=== PATIENT | male | born 1965 | race Caucasian/White ===

== ENCOUNTER 2016-12-03 10:14 | Emergency (ER) | payer BC ==
[2016-12-03] MEDS ORDERED: methylPREDNISolone INJ 125 MG/2 ML VIAL (J2930) As Ordered ONE (10:53)
[2016-12-03] MEDS ORDERED: IPRATROPIUM 0.5MG/ALBUTEROL 2.5MG INH SOL UD 3ML (DUONEB)(J7620) As Ordered ONE (10:54)
[2016-12-03 11:18] LABS: BASO # 0.1 K/mm3 (0.0-0.2); BASO % 0.9 % (0.0-1.0); EOS # 0.2 K/mm3 (0.0-0.50); EOS % 1.7 % (0.0-3.0); LARGE UNSTAINED CELL # 0.1 K/mm3 (0.0-0.4); LARGE UNSTAINED CELL % 1.4 % (0.0-4.0); LYMPH # 2.8 K/mm3 (1.5-4.5); MEAN CORPUSCULAR HEMOGLOBIN 30.3 pg (27.0-33.0); MEAN CORPUSCULAR HGB CONC 33.1 g/dl (32.0-36.5); MEAN CORPUSCULAR VOLUME 91.6 fl (80.0-96.0); MONO # 0.4 K/mm3 (0.0-0.8); NEUTROPHILS % 63.1 % (36.0-66.0); PLATELET COUNT, AUTOMATED 317 k/mm3 (150-450); RED CELL DISTRIBUTION WIDTH 12.4 % (11.5-14.5); WHITE BLOOD COUNT 9.5 K/mm3 (4.0-10.0)
[2016-12-03 11:39] LABS: ANION GAP 12 MEQ/L (8-16); BLOOD UREA NITROGEN 17 MG/DL (7-18); CALCIUM LEVEL 9.1 MG/DL (8.5-10.1); CARBON DIOXIDE LEVEL 24 MEQ/L (21-32); CHLORIDE LEVEL 101 MEQ/L (98-107); GLOMERULAR FILTRATION RATE > 60.0 (>56); GLUCOSE, FASTING 368 MG/DL (70-105); POTASSIUM SERUM 4.4 MEQ/L (3.5-5.1); SODIUM LEVEL 137 MEQ/L (136-145)
[2016-12-03] MEDS ORDERED: ISOVUE-370 76% 100ML VIAL (Q9967) As Ordered ONE (12:01)
--- NOTE | 2016-12-03 15:49 | EDDOCDS ---
Nurse's Notes [facility] Name: Bal Stanley Age: 51 yrs Sex: Male : 1965 Arrival Date: 12/03/2016 Time: 10:14 Bed 7 Private MD: Ernesto hCeng Diagnosis: Dyspnea-resolving pneumonia Presentation: 12/03 10:24 Presenting complaint: Patient states: Patient being followed by Dr Cheng for possible js13 pneumonia. Patient brought over from outpatient lab for increasing SOB. Patient had chest x ray and labs drawn this morning. Adult Sepsis Screening: The patient does not have new or worsening altered mentation. Patient's respiratory rate is less than 22. Systolic blood pressure is greater than 100. Patient has a qSOFA score of 0- Negative Sepsis Screen. Suicide/Homicide risk assessment- the patient denies having any suicidal and/or homicidal ideations and does not present with any other emotional, behavioral or mental health complaints. Status: Patient is not a office services assistant or dependent. Transition of care: patient was not received from another setting of care. 10:24 Acuity: ARUN Level 3 js13 10:24 Method Of Arrival: Wheelchair js13 Triage Assessment: 10:30 General: Appears in no apparent distress, Behavior is appropriate for age, cooperative. js13 Pain: Denies pain. Pt Declines HIV testing. The patient is triaged at the bedside. See Assessment in Nurses Notes section of ED record. Neurological: Level of Consciousness is awake, alert. Cardiovascular: Rhythm is sinus rhythm Chest pain is denied. Respiratory: Onset: The symptoms/episode began/occurred PAST WEEK, Airway is patent Respiratory effort is even, Respiratory pattern is regular, Breath sounds are diminished. Derm: Skin is pink, warm & dry. Historical: - Allergies: No known drug Allergies; - Home Meds: 1. metformin 1,000 mg Oral tr24 1 tab twice a day 2. metoprolol tartrate 25 mg Oral tab 1 tab 2 times per day 3. omeprazole 40 mg Oral cpDR 1 cap once daily 4. Cinnamon 500 mg oral cap daily 5. azithromycin 250 mg Oral tab 1 tab once daily LAST DAY IS TOMORROW - PMHx: Hypertension; Diabetes - NIDDM: controlled; GERD; - PSHx: Tonsillectomy; - Social history: Smoking status: Patient states former smoker of tobacco. No barriers to communication noted, The patient speaks fluent Swedish. - Family history: Not pertinent. - : The pt / caregiver states he / she is not on anticoagulants. Home medication list is obtained from the patient. - Exposure Risk Screening:: None identified. Screenin:31 Screening information is obtained from the patient. Fall risk: No risks identified. js13 Assistance ADL's: requires no assistance with activities of daily living. Abuse/DV Screen: The patient / caregiver reports he/she is: not in a situation that causes fear, pain or injury. Nutritional screening: No deficits noted. Advance Directives: There is no active DNR order. home support is adequate. Assessment: 10:31 General: Appears in no apparent distress, Behavior is appropriate for age, cooperative. js13 Pain: Denies pain. Neurological: Level of Consciousness is awake, alert. Cardiovascular: Rhythm is sinus rhythm Chest pain is denied. Respiratory: Airway is patent Respiratory effort is even, labored, Respiratory pattern is regular, symmetrical, Breath sounds are diminished. Derm: Skin is pink, warm & dry. 11:22 General: Appears in no apparent distress, Behavior is appropriate for age, cooperative. js13 Pain: Denies pain. Neurological: Level of Consciousness is awake, alert. Cardiovascular: Rhythm is sinus rhythm Chest pain is denied. Respiratory: Airway is patent Respiratory effort is even, unlabored, Respiratory pattern is regular. Derm: Skin is pink, warm & dry. 12:10 Adult Sepsis Screening: The patient does not have new or worsening altered mentation. js13 Patient's respiratory rate is less than 22. Systolic blood pressure is greater than 100. Patient has a qSOFA score of 0- Negative Sepsis Screen. General: Appears in no apparent distress, comfortable, Behavior is appropriate for age, cooperative. Pain: Denies pain. Neurological: Level of Consciousness is awake, alert. Cardiovascular: Rhythm is sinus rhythm Chest pain is denied. Respiratory: Airway is patent Respiratory effort is even, unlabored, Respiratory pattern is regular, symmetrical, Breath sounds are diminished. Derm: Skin is pink, warm & dry. 13:37 General: Appears in no apparent distress, comfortable, Behavior is appropriate for age, js13 cooperative. Pain: Denies pain. Neurological: Level of Consciousness is awake, alert. Cardiovascular: Rhythm is sinus rhythm Chest pain is denied. Respiratory: Airway is patent Respiratory effort is even, unlabored, Respiratory pattern is regular, symmetrical, Breath sounds are diminished. Derm: Skin is pink, warm & dry. 14:14 General: Appears in no apparent distress, Behavior is appropriate for age, cooperative. js13 General: Patient ambulated in hallway with no complications. Patients O2 sat range was 95 to 97% on RA.. Pain: Denies pain. Neurological: Level of Consciousness is awake, alert. Cardiovascular: Rhythm is sinus tachycardia Chest pain is denied. Respiratory: Airway is patent Respiratory effort is even, unlabored, Respiratory pattern is regular, symmetrical. Derm: Skin is pink, warm & dry. 14:57 General: Patient states he has a $6000 deductible on his insurance and is unable to js13 afford his medications and if he needs insulin to control his sugars he will not be taking it if it is too expensive. . 15:41 Adult Sepsis Screening: The patient does not have new or worsening altered mentation. js13 Patient's respiratory rate is less than 22. Systolic blood pressure is greater than 100. Patient has a qSOFA score of 0- Negative Sepsis Screen. General: Appears in no apparent distress, comfortable, Behavior is appropriate for age, cooperative. Pain: Denies pain. Neurological: Level of Consciousness is awake, alert. Cardiovascular: Rhythm is sinus tachycardia Chest pain is denied. Respiratory: Airway is patent Respiratory effort is even, unlabored, Respiratory pattern is regular, symmetrical, Breath sounds are diminished. Derm: Skin is pink, warm & dry. Vital Signs: 10:21 BP 136 / 98 (auto/); Pulse 96; Resp 18; Temp 96.9(O); Pulse Ox 96% on R/A; Weight js13 118.84 kg; Height 5 ft. 11 in. (180.34 cm); Pain 0/10; 10:36 BP 141 / 92 (auto/); js13 10:36 Pulse 92 MON; Resp 18; Pulse Ox 96% on R/A; js13 10:51 BP 131 / 98 (auto/); js13 10:51 Pulse 92 MON; Resp 18; Pulse Ox 94% on R/A; js13 11:06 BP 132 / 90 (auto/); js13 11:06 Pulse 94 MON; Resp 18; Pulse Ox 96% on R/A; js13 11:21 BP 146 / 99 (auto/); js13 11:21 Pulse 108 MON; Resp 18; Pulse Ox 96% on R/A; js13 11:36 BP 123 / 77 (auto/); js13 11:36 Pulse 110 MON; Resp 18; Pulse Ox 93% on R/A; js13 11:51 BP 133 / 84 (auto/); js13 11:51 Pulse 108 MON; Resp 18; Pulse Ox 95% on R/A; js13 12:06 BP 147 / 91 (auto/); js13 12:06 Pulse 110 MON; Resp 18; Pulse Ox 95% on R/A; js13 12:32 BP 197 / 95 (auto/); js13 12:33 Pulse 100 MON; Resp 18; Pulse Ox 93% on R/A; js13 12:47 BP 132 / 84 (auto/); js13 12:47 Pulse 96 MON; Resp 20; Pulse Ox 95% on R/A; js13 13:02 BP 153 / 90 (auto/); js13 13:02 Pulse 114 MON; Resp 20; Pulse Ox 96% on R/A; js13 13:17 BP 143 / 82 (auto/); js13 13:17 Pulse 98 MON; Resp 18; Pulse Ox 93% on R/A; js13 13:32 BP 134 / 80 (auto/); js13 13:32 Pulse 96 MON; Resp 20; Pulse Ox 94% on R/A; js13 13:47 BP 131 / 80 (auto/); js13 13:47 Pulse 102 MON; Resp 18; Pulse Ox 95% on R/A; js13 14:02 BP 143 / 79 (auto/); js13 14:02 Pulse 98 MON; Resp 18; Pulse Ox 93% on R/A; js13 14:17 BP 146 / 94 (auto/); js13 14:17 Pulse 104 MON; Resp 18; Pulse Ox 94% on R/A; js13 14:32 BP 142 / 90 (auto/); js13 14:32 Pulse 102 MON; Resp 18; Pulse Ox 94% on R/A; js13 15:02 BP 154 / 87 (auto/); js13 15:02 Pulse 98 MON; Resp 18; Pulse Ox 95% on R/A; js13 15:17 BP 147 / 86 (auto/); js13 15:17 Pulse 104 MON; Resp 18; Pulse Ox 96% on R/A; js13 15:32 BP 141 / 81 (auto/); js13 15:32 Pulse 110 MON; Resp 18; Temp 97.1(O); Pulse Ox 94% on R/A; Pain 0/10; js13 10:21 Body Mass Index 36.54 (118.84 kg, 180.34 cm) js13 10:36 patient took off O2 js13 ED Course: 10:15 Patient visited by Siobhan Snider, Project Coach. lbd 10:15 Patient moved to Waiting lbd 10:16 Ernesto Cheng is Private Physician. lbd 10:17 Mesha Steele,RN is Primary Nurse. kpj 10:17 Patient moved to 7 [facility] 10:26 Triage Initiated js13 10:31 Patient has correct armband on for positive identification. Placed in gown. Bed in low ct3 position. Call light in reach. Side rails up X2. assistant loan processor on. Pulse ox on. NIBP on. 10:31 The patient / caregiver is instructed regarding the plan of care and ED course. js13 10:31 EKG done. (by ED staff). Reviewed by Shayy Joseph MD. ct3 10:31 No procedures done that require assistance. js13 10:32 Patient visited by Josee Powell PCA. ct3 10:32 Patient visited by Mesha Steele,ROSA M. js13 10:45 Shayy Joseph MD is Attending Physician. sd1 10:45 Patient visited by Shayy Joseph MD. sd1 10:52 -Blood Culture Sent. js13 10:52 B-Type Natiuretic Peptide Sent. 13 10:52 Basic Metabolic Profile Sent. 13 10:52 CBC with Diff Sent. 13 10:52 Cardiac Injury Profile Sent. js13 10:52 Troponin Sent. js13 10:52 Inserted saline lock: 18 gauge in left antecubital area and blood collected. The js13 patient tolerated the procedure well. Labs drawn. (by ED staff). Sent per order to lab. Labs/Blood culture drawn. 10:57 BLOOD CULTURES Sent. js13 11:24 Patient visited by Mesha Steele RN. js13 12:06 [facility] Payment Agreement was scanned into [employer] and attached to record. mm15 12:11 Patient visited by Mesha Steele RN. js13 12:46 Patient visited by Josee Powell PCA. ct3 13:39 Patient visited by Mesha Steele RN. js13 14:16 Patient visited by Mesha Steele RN. js13 15:20 Patient visited by Josee Powell PCA. ct3 15:27 Ernesto Cheng is Referral Physician. sd1 15:41 Discontinued IV lock intact, bleeding controlled, pressure dressing applied, No js13 redness/swelling at site. Administered Medications: 10:57 Drug: Solu-MEDROL 125 mg [Solu-Medrol 500 mg intravenous solution (125 mg)] Route: IVP; js13 Site: left antecubital; 10:59 Drug: Albuterol-Ipratropium 1 neb [ipratropium-albuterol 0.5 mg-3 mg(2.5 mg base)/3 mL kt1 nebulization soln (1 neb)] Route: Nebulizer; 11:15 Drug: Albuterol-Ipratropium 1 neb [ipratropium-albuterol 0.5 mg-3 mg(2.5 mg base)/3 mL kt1 nebulization soln (1 neb)] Route: Nebulizer; 11:28 Drug: Albuterol-Ipratropium 1 neb [ipratropium-albuterol 0.5 mg-3 mg(2.5 mg base)/3 mL kt1 nebulization soln (1 neb)] Route: Nebulizer; 12:12 Drug: NS 0.9% 1000 ml [sodium chloride 0.9 % intravenous solution] Route: IV; Rate: js13 bolus; Site: left antecubital; 15:43 Follow up: IV Status: Completed infusion; IV Intake: 1000ml js13 Point of Care Testing: Blood Glucose: 14:57 Blood Glucose: 339 mg/dL; js13 Ranges: Intake: 15:43 IV: 1000.00ml; Total: 1000.00ml. js13 RT: 10:59 Initial Med Neb Given as ordered Patient was instructed and evaluated on procedure. kt1 Respiratory: Breath sounds are clear Breath sounds are diminished bilaterally. 11:15 Subsequent Med Neb Given as ordered. kt1 11:29 Subsequent Med Neb Given as ordered. kt1 Order Results: Lab Order: B-Type Natiuretic Peptide; SPEC'M 12/03/16 10:49 Test: BRAIN NATRIURETIC PEPTIDE; Value: 7.4; Range: <100; Units: PG/ML; Status: F Lab Order: Basic Metabolic Profile; SPEC'M 12/03/16 10:49 Test: GLUCOSE, FASTING; Value: 368; Range: 70-105; Abnormal: Above high normal; Units: MG/DL; Status: F Test: BLOOD UREA NITROGEN; Value: 17; Range: 7-18; Units: MG/DL; Status: F Test: CREATININE FOR GFR; Value: 0.80; Range: 0.70-1.30; Units: MG/DL; Status: F Test: GLOMERULAR FILTRATION RATE; Value: > 60.0; Range: >56; Status: F Test: SODIUM LEVEL; Value: 137; Range: 136-145; Units: MEQ/L; Status: F Test: POTASSIUM SERUM; Value: 4.4; Range: 3.5-5.1; Units: MEQ/L; Status: F Test: CHLORIDE LEVEL; Value: 101; Range: 98-107; Units: MEQ/L; Status: F Test: CARBON DIOXIDE LEVEL; Value: 24; Range: 21-32; Units: MEQ/L; Status: F Test: ANION GAP; Value: 12; Range: 8-16; Units: MEQ/L; Status: F Test: CALCIUM LEVEL; Value: 9.1; Range: 8.5-10.1; Units: MG/DL; Status: F Test Note: ; Units are mL/min/1.73 m2 Chronic Kidney Disease Staging per NKF: Stage I & II GFR >=60 Normal to Mildly Decreased Stage III GFR 30-59 Moderately Decreased Stage IV GFR 15-29 Severely Decreased Stage V GFR <15 Very Little GFR Left ESRD GFR <15 on DIAMOND SETTER Lab Order: CBC with Diff; SPEC'M 12/03/16 10:49 Test: WHITE BLOOD COUNT; Value: 9.5; Range: 4.0-10.0; Units: K/mm3; Status: F Test: RED BLOOD COUNT; Value: 5.18; Range: 4.30-6.10; Units: M/mm3; Status: F Test: HEMOGLOBIN; Value: 15.7; Range: 14.0-18.0; Units: g/dl; Status: F Test: HEMATOCRIT; Value: 47.5; Range: 42.0-52.0; Units: %; Status: F Test: MEAN CORPUSCULAR VOLUME; Value: 91.6; Range: 80.0-96.0; Units: fl; Status: F Test: MEAN CORPUSCULAR HEMOGLOBIN; Value: 30.3; Range: 27.0-33.0; Units: pg; Status: F Test: MEAN CORPUSCULAR HGB CONC; Value: 33.1; Range: 32.0-36.5; Units: g/dl; Status: F Test: RED CELL DISTRIBUTION WIDTH; Value: 12.4; Range: 11.5-14.5; Units: %; Status: F Test: PLATELET COUNT, AUTOMATED; Value: 317; Range: 150-450; Units: k/mm3; Status: F Test: NEUTROPHILS %; Value: 63.1; Range: 36.0-66.0; Units: %; Status: F Test: LYMPH %; Value: 29.0; Range: 24.0-44.0; Units: %; Status: F Test: MONO %; Value: 4.0; Range: 0.0-5.0; Units: %; Status: F Test: EOS %; Value: 1.7; Range: 0.0-3.0; Units: %; Status: F Test: BASO %; Value: 0.9; Range: 0.0-1.0; Units: %; Status: F Test: LARGE UNSTAINED CELL %; Value: 1.4; Range: 0.0-4.0; Units: %; Status: F Test: NEUTROPHILS #; Value: 6.0; Range: 1.8-7.7; Units: K/mm3; Status: F Test: LYMPH #; Value: 2.8; Range: 1.5-4.5; Units: K/mm3; Status: F Test: MONO #; Value: 0.4; Range: 0.0-0.8; Units: K/mm3; Status: F Test: EOS #; Value: 0.2; Range: 0.0-0.50; Units: K/mm3; Status: F Test: BASO #; Value: 0.1; Range: 0.0-0.2; Units: K/mm3; Status: F Test: LARGE UNSTAINED CELL #; Value: 0.1; Range: 0.0-0.4; Units: K/mm3; Status: F Lab Order: Cardiac Injury Profile; [facility]' 12/03/16 10:49 Test: CPK CREATINE PHOSPHOKINASE; Value: 103; Range: 39-308; Units: U/L; Status: F Test: CK-MB VALUE MASS; Value: 1.0; Range: 0.0-3.6; Units: NG/ML; Status: F Test: MB/CK RELATIVE INDEX; Value: 0.97; Range: < OR =4; Status: F Test Note: ; DIAGNOSIS CRITERIA MMB ng/ml Relative Index (RI) NON-AMI < or = 5 N/A MOSER ZONE > 5 < or = 4 AMI > 5 > 4 Lab Order: Troponin; [facility]' 12/03/16 10:49 Test: TROPONIN I; Value: < 0.02; Range: < 0.10; Units: NG/ML; Status: F Test Note: ; Troponin I Reference Interval for [employer] LOCI: 99th Percentile= 0.00-0.045 ng/ml Risk Stratification: <= 0.10 ng/ml Decreased Risk for Adverse Clinical Events. 0.10-1.50 ng/ml Increased Risk for Adverse Clinical Events. Evaluation of additional criterion and/or repeat testing in 2-6 hours is suggested to rule out myocardial damage. >= 1.50 ng/ml Indicative of Myocardial Injury. Lab Order: Fingerstick Blood Sugar; [facility]' 12/03/16 14:54 Test: BEDSIDE GLUCOSE; Value: 339; Range: 70-105; Abnormal: Above high normal; Units: MG/DL; Status: F Outcome: 15:27 Discharge ordered by Provider. [facility] 15:41 CT Study completed. [facility] 15:41 Discharge Assessment: Patient awake, alert and oriented x 3. No cognitive and/or [facility] functional deficits noted. Patient verbalized understanding of disposition instructions. patient administered narcotics - no. Property :Personal belongings accompany Pt. 15:41 The following High Risk Discharge criteria are identified: None. Discharged to home via [facility] ambulance, with friend. Condition: stable. Discharge instructions given to patient, Instructed on discharge instructions, follow up and referral plans. medication usage, Demonstrated understanding of instructions, medications, Pt was receptive of discharge instructions/ teaching. Prescriptions given X 3. 15:48 Patient left the ED. [facility] Signatures: Shayy Joseph MD MD sd1 Siobhan Snider, Project Coach Unit lbd Anushka Cotter RN RN [facility] Tari Fisher kt1 Josee Powell, MEDICAL MANAGEMENT SPECIALIST MEDICAL MANAGEMENT SPECIALIST ct3 Mesha Steele,RN RN js13 Jose Enrique Etienne mm15 MTDNicolas
--- NOTE | 2016-12-03 15:49 | EDDOCDS ---
Physician Documentation [facility] Name: Bal Stanley Age: 51 yrs Sex: Male : 1965 Arrival Date: 12/03/2016 Time: 10:14 Bed 7 Private MD: Ernesto Cheng Disposition: 12/03/16 15:27 Discharged to Home/Self Care. Impression: Dyspnea - resolving pneumonia. - Condition is Stable. - Discharge Instructions: Pneumonia, Adult, Shortness of Breath, [id number], Pneumonia, Adult, [id number], How to Use a Nebulizer. - Prescriptions for Prednisone 20 mg Oral Tablet - take 3 tablet by ORAL route once daily for 5 days; 15 tablet. Albuterol Sulfate 2.5 mg /3 mL (0.083 %) Inhalation Solution for Nebulization - inhale 1 unit by NEBULIZATION route 4 times per day As needed; 1 box. Home Nebulizer - Dx: (pneumonia). Duration: (3 months). - Medication Reconciliation, Local Pharmacy Hours form. - Follow up: Ernesto Cheng; When: Tomorrow. - Problem is an ongoing problem. - Symptoms have improved. Historical: - Allergies: No known drug Allergies; - Home Meds: 1. metformin 1,000 mg Oral tr24 1 tab twice a day 2. metoprolol tartrate 25 mg Oral tab 1 tab 2 times per day 3. omeprazole 40 mg Oral cpDR 1 cap once daily 4. Cinnamon 500 mg oral cap daily 5. azithromycin 250 mg Oral tab 1 tab once daily LAST DAY IS TOMORROW - PMHx: Hypertension; Diabetes - NIDDM: controlled; GERD; - PSHx: Tonsillectomy; - Social history: Smoking status: Patient states former smoker of tobacco. No barriers to communication noted, The patient speaks fluent Georgian. - Family history: Not pertinent. - : The pt / caregiver states he / she is not on anticoagulants. Home medication list is obtained from the patient. - Exposure Risk Screening:: None identified. Vital Signs: 12/03 10:21 BP 136 / 98 (auto/); Pulse 96; Resp 18; Temp 96.9(O); Pulse Ox 96% on R/A; Weight js13 118.84 kg / 262 lbs; Height 5 ft. 11 in. (180.34 cm); Pain 0/10; 10:36 BP 141 / 92 (auto/); js13 10:36 Pulse 92 MON; Resp 18; Pulse Ox 96% on R/A; js13 10:51 BP 131 / 98 (auto/); js13 10:51 Pulse 92 MON; Resp 18; Pulse Ox 94% on R/A; js13 11:06 BP 132 / 90 (auto/); js13 11:06 Pulse 94 MON; Resp 18; Pulse Ox 96% on R/A; js13 11:21 BP 146 / 99 (auto/); js13 11:21 Pulse 108 MON; Resp 18; Pulse Ox 96% on R/A; js13 11:36 BP 123 / 77 (auto/); js13 11:36 Pulse 110 MON; Resp 18; Pulse Ox 93% on R/A; js13 11:51 BP 133 / 84 (auto/); js13 11:51 Pulse 108 MON; Resp 18; Pulse Ox 95% on R/A; js13 12:06 BP 147 / 91 (auto/); js13 12:06 Pulse 110 MON; Resp 18; Pulse Ox 95% on R/A; js13 12:32 BP 197 / 95 (auto/); js13 12:33 Pulse 100 MON; Resp 18; Pulse Ox 93% on R/A; js13 12:47 BP 132 / 84 (auto/); js13 12:47 Pulse 96 MON; Resp 20; Pulse Ox 95% on R/A; js13 13:02 BP 153 / 90 (auto/); js13 13:02 Pulse 114 MON; Resp 20; Pulse Ox 96% on R/A; js13 13:17 BP 143 / 82 (auto/); js13 13:17 Pulse 98 MON; Resp 18; Pulse Ox 93% on R/A; js13 13:32 BP 134 / 80 (auto/); js13 13:32 Pulse 96 MON; Resp 20; Pulse Ox 94% on R/A; js13 13:47 BP 131 / 80 (auto/); js13 13:47 Pulse 102 MON; Resp 18; Pulse Ox 95% on R/A; js13 14:02 BP 143 / 79 (auto/); js13 14:02 Pulse 98 MON; Resp 18; Pulse Ox 93% on R/A; js13 14:17 BP 146 / 94 (auto/); js13 14:17 Pulse 104 MON; Resp 18; Pulse Ox 94% on R/A; js13 14:32 BP 142 / 90 (auto/); js13 14:32 Pulse 102 MON; Resp 18; Pulse Ox 94% on R/A; js13 15:02 BP 154 / 87 (auto/); js13 15:02 Pulse 98 MON; Resp 18; Pulse Ox 95% on R/A; js13 15:17 BP 147 / 86 (auto/); js13 15:17 Pulse 104 MON; Resp 18; Pulse Ox 96% on R/A; js13 15:32 BP 141 / 81 (auto/); js13 15:32 Pulse 110 MON; Resp 18; Temp 97.1(O); Pulse Ox 94% on R/A; Pain 0/10; js13 10:21 Body Mass Index 36.54 (118.84 kg, 180.34 cm) js13 10:36 patient took off O2 js13 MDM: 10:20 -Blood Culture (Adults Only), peripheral from different site, or from device/port/PICC sd1 etc. if present ordered. 10:20 Compensation Consulting Manager/Pulse Ox/q 15 min VS ordered. sd1 10:20 IV Saline Lock ordered. sd1 10:20 Oxygen at 4L/Min NC or Home dosage ordered. sd1 10:20 Rhythm Strip to chart ordered. sd1 10:22 B-Type Natiuretic Peptide Ordered. EDMS 10:22 Basic Metabolic Profile Ordered. EDMS 10:22 CBC with Diff Ordered. EDMS 10:22 Cardiac Injury Profile Ordered. EDMS 10:22 Troponin Ordered. EDMS 10:22 -Blood Culture Ordered. EDMS 10:22 ECG WITH READING ER PHYS+CARDIAG ordered. EDMS 10:48 -Blood Culture (Adults Only), peripheral from different site, or from device/port/PICC lbd etc. if present complete. 10:51 Albuterol-Ipratropium 1 neb Nebulizer every 20 minutes x3 ordered. sd1 10:51 Solu-MEDROL 125 mg IVP once ordered. sd1 10:56 BLOOD CULTURES Ordered. EDMS 10:57 Solu-MEDROL 125 mg IVP once ordered. js13 11:52 Basic Metabolic Profile Reviewed. sd1 11:52 B-Type Natiuretic Peptide Reviewed. sd1 11:52 CBC with Diff Reviewed. sd1 11:52 Cardiac Injury Profile Reviewed. sd1 11:52 Troponin Reviewed. sd1 11:54 CT Chest Angio R/O PE Ordered. EDMS 12:05 Financial registration complete. mm15 12:06 [facility] Payment Agreement was scanned into [employer] and attached to record. mm15 12:10 NS 0.9% 1000 ml IV at bolus once ordered. sd1 14:01 Misc. Nursing Order ordered. sd1 14:45 Accucheck ordered. sd1 Point of Care Testing: Blood Glucose: 14:57 Blood Glucose: 339 mg/dL; js13 Ranges: Administered Medications: 10:57 Drug: Solu-MEDROL 125 mg [Solu-Medrol 500 mg intravenous solution (125 mg)] Route: IVP; js13 Site: left antecubital; 10:59 Drug: Albuterol-Ipratropium 1 neb [ipratropium-albuterol 0.5 mg-3 mg(2.5 mg base)/3 mL kt1 nebulization soln (1 neb)] Route: Nebulizer; 11:15 Drug: Albuterol-Ipratropium 1 neb [ipratropium-albuterol 0.5 mg-3 mg(2.5 mg base)/3 mL kt1 nebulization soln (1 neb)] Route: Nebulizer; 11:28 Drug: Albuterol-Ipratropium 1 neb [ipratropium-albuterol 0.5 mg-3 mg(2.5 mg base)/3 mL kt1 nebulization soln (1 neb)] Route: Nebulizer; 12:12 Drug: NS 0.9% 1000 ml [sodium chloride 0.9 % intravenous solution] Route: IV; Rate: js13 bolus; Site: left antecubital; 15:43 Follow up: IV Status: Completed infusion; IV Intake: 1000ml js13 Signatures: Dispatcher [employer] EDOH Shayy Joseph MD MD sd1 Siobhan Snider, Entertainment Agent Unit lbd Anushka Cotter RN RN kpj Sullivan, Jennifer, RN RN js13 Jose Enrique Etienne mm15 Tari Fisher kt1 The chart was reviewed and I authenticate all verbal orders and agree with the evaluation and treatment provided.Corrections: (The following items were deleted from the chart) 10:52 10:51 BLOOD CULTURES ordered. EDMS EDMS 11:12 10:22 Chest, 1 view+XR ordered. EDMS EDMS Attachments: 12:06 [facility] Payment Agreement mm15 MTDD
--- NOTE | 2016-12-03 17:02 | REP ---
CTA chest,12/03/2016: Indication: Cough. Comparison: PA and lateral chest 08/03/2017 and 10/18/2016. Technique: Following dynamic IV contrast administration of 75 ml Isovue 370 mg/ml IV, 3 mm contiguous spiral axial sections were performed through the chest. Findings: Mild aneurysmal dilatation in ascending thoracic aorta, which measures 4.2 cm in AP by 4.2 cm transverse dimension in the ascending portion. There is no aortic dissection or mediastinal hematoma. There is homogeneous opacification of the bilateral main, lobar and proximal segmental pulmonary arteries. Evaluation of distal pulmonary arteries is somewhat limited contributed to by large body habitus. There are multiple small nonspecific mediastinal nodes, none of which are pathologically enlarged. Interstitial scarring and/or atelectatic changes noted in the lung bases bilaterally. There are no alveolar infiltrates, pulmonary nodules, or pleural effusions. Visualized portions of liver demonstrates mild diffuse fatty infiltration. There is mild hepatomegaly with liver 20.4 cm craniocaudal dimension. Visualized portions of spleen, pancreas, gallbladder, adrenal glands and stomach are within normal limits. There are multiple small fern hepatis and retroperitoneal nodes, none of which are pathologically enlarged. Impression: 1. No central pulmonary artery emboli are identified through the proximal segmental pulmonary artery levels. The more peripheral pulmonary arteries are limited in evaluation contributed to by large body habitus.2. Mild aneurysmal dilatation of ascending thoracic aorta measuring 4.2 x 4.2 cm. No aortic dissection.3. Bilateral interstitial changes most compatible with interstitial fibrotic scarring especially in the lung bases. Differential diagnosis can include atelectatic changes.4. Multiple small fern hepatis/retroperitoneal nodes, none of which are pathologically enlarged.5. Mild hepatomegaly, fatty infiltration of liver. Signed by Rossy Sparks MD 12/03/2016 08:12 P
--- NOTE | 2016-12-04 19:37 | ECGEPIP ---
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
--- NOTE | 2016-12-05 16:50 | EDDOCDS ---
Physician Documentation [facility] Name: Bal Stanley Age: 51 yrs Sex: Male : 1965 Arrival Date: 12/03/2016 Time: 10:14 Bed 7 Private MD: Ernesto Berkowitz Disposition: 12/03/16 15:27 Discharged to Home/Self Care. Impression: Dyspnea - resolving pneumonia. - Condition is Stable. - Discharge Instructions: Pneumonia, Adult, Shortness of Breath, [id number], Pneumonia, Adult, [id number], How to Use a Nebulizer. - Prescriptions for Prednisone 20 mg Oral Tablet - take 3 tablet by ORAL route once daily for 5 days; 15 tablet. Albuterol Sulfate 2.5 mg /3 mL (0.083 %) Inhalation Solution for Nebulization - inhale 1 unit by NEBULIZATION route 4 times per day As needed; 1 box. Home Nebulizer - Dx: (pneumonia). Duration: (3 months). - Medication Reconciliation, Local Pharmacy Hours form. - Follow up: Ernesto Berkowitz; When: Tomorrow. - Problem is an ongoing problem. - Symptoms have improved. Historical: - Allergies: No known drug Allergies; - Home Meds: 1. metformin 1,000 mg Oral tr24 1 tab twice a day 2. metoprolol tartrate 25 mg Oral tab 1 tab 2 times per day 3. omeprazole 40 mg Oral cpDR 1 cap once daily 4. Cinnamon 500 mg oral cap daily 5. azithromycin 250 mg Oral tab 1 tab once daily LAST DAY IS TOMORROW - PMHx: Hypertension; Diabetes - NIDDM: controlled; GERD; - PSHx: Tonsillectomy; - Social history: Smoking status: Patient states former smoker of tobacco. No barriers to communication noted, The patient speaks fluent Sinhala. - Family history: Not pertinent. - : The pt / caregiver states he / she is not on anticoagulants. Home medication list is obtained from the patient. - Exposure Risk Screening:: None identified. Vital Signs: 12/03 10:21 BP 136 / 98 (auto/); Pulse 96; Resp 18; Temp 96.9(O); Pulse Ox 96% on R/A; Weight js13 118.84 kg / 262 lbs; Height 5 ft. 11 in. (180.34 cm); Pain 0/10; 10:36 BP 141 / 92 (auto/); js13 10:36 Pulse 92 MON; Resp 18; Pulse Ox 96% on R/A; js13 10:51 BP 131 / 98 (auto/); js13 10:51 Pulse 92 MON; Resp 18; Pulse Ox 94% on R/A; js13 11:06 BP 132 / 90 (auto/); js13 11:06 Pulse 94 MON; Resp 18; Pulse Ox 96% on R/A; js13 11:21 BP 146 / 99 (auto/); js13 11:21 Pulse 108 MON; Resp 18; Pulse Ox 96% on R/A; js13 11:36 BP 123 / 77 (auto/); js13 11:36 Pulse 110 MON; Resp 18; Pulse Ox 93% on R/A; js13 11:51 BP 133 / 84 (auto/); js13 11:51 Pulse 108 MON; Resp 18; Pulse Ox 95% on R/A; js13 12:06 BP 147 / 91 (auto/); js13 12:06 Pulse 110 MON; Resp 18; Pulse Ox 95% on R/A; js13 12:32 BP 197 / 95 (auto/); js13 12:33 Pulse 100 MON; Resp 18; Pulse Ox 93% on R/A; js13 12:47 BP 132 / 84 (auto/); js13 12:47 Pulse 96 MON; Resp 20; Pulse Ox 95% on R/A; js13 13:02 BP 153 / 90 (auto/); js13 13:02 Pulse 114 MON; Resp 20; Pulse Ox 96% on R/A; js13 13:17 BP 143 / 82 (auto/); js13 13:17 Pulse 98 MON; Resp 18; Pulse Ox 93% on R/A; js13 13:32 BP 134 / 80 (auto/); js13 13:32 Pulse 96 MON; Resp 20; Pulse Ox 94% on R/A; js13 13:47 BP 131 / 80 (auto/); js13 13:47 Pulse 102 MON; Resp 18; Pulse Ox 95% on R/A; js13 14:02 BP 143 / 79 (auto/); js13 14:02 Pulse 98 MON; Resp 18; Pulse Ox 93% on R/A; js13 14:17 BP 146 / 94 (auto/); js13 14:17 Pulse 104 MON; Resp 18; Pulse Ox 94% on R/A; js13 14:32 BP 142 / 90 (auto/); js13 14:32 Pulse 102 MON; Resp 18; Pulse Ox 94% on R/A; js13 15:02 BP 154 / 87 (auto/); js13 15:02 Pulse 98 MON; Resp 18; Pulse Ox 95% on R/A; js13 15:17 BP 147 / 86 (auto/); js13 15:17 Pulse 104 MON; Resp 18; Pulse Ox 96% on R/A; js13 15:32 BP 141 / 81 (auto/); js13 15:32 Pulse 110 MON; Resp 18; Temp 97.1(O); Pulse Ox 94% on R/A; Pain 0/10; js13 10:21 Body Mass Index 36.54 (118.84 kg, 180.34 cm) js13 10:36 patient took off O2 js13 MDM: 10:20 -Blood Culture (Adults Only), peripheral from different site, or from device/port/PICC sd1 etc. if present ordered. 10:20 Bulk System Operator/Pulse Ox/q 15 min VS ordered. sd1 10:20 IV Saline Lock ordered. sd1 10:20 Oxygen at 4L/Min NC or Home dosage ordered. sd1 10:20 Rhythm Strip to chart ordered. sd1 10:22 B-Type Natiuretic Peptide Ordered. EDMS 10:22 Basic Metabolic Profile Ordered. EDMS 10:22 CBC with Diff Ordered. EDMS 10:22 Cardiac Injury Profile Ordered. EDMS 10:22 Troponin Ordered. EDMS 10:22 -Blood Culture Ordered. EDMS 10:22 ECG WITH READING ER PHYS+CARDIAG ordered. EDMS 10:48 -Blood Culture (Adults Only), peripheral from different site, or from device/port/PICC lbd etc. if present complete. 10:51 Albuterol-Ipratropium 1 neb Nebulizer every 20 minutes x3 ordered. sd1 10:51 Solu-MEDROL 125 mg IVP once ordered. sd1 10:56 BLOOD CULTURES Ordered. EDMS 10:57 Solu-MEDROL 125 mg IVP once ordered. js13 11:52 Basic Metabolic Profile Reviewed. sd1 11:52 B-Type Natiuretic Peptide Reviewed. sd1 11:52 CBC with Diff Reviewed. sd1 11:52 Cardiac Injury Profile Reviewed. sd1 11:52 Troponin Reviewed. sd1 11:54 CT Chest Angio R/O PE Ordered. EDMS 12:05 Financial registration complete. mm15 12:06 [facility] Payment Agreement was scanned into [employer] and attached to record. mm15 12:10 NS 0.9% 1000 ml IV at bolus once ordered. sd1 14:01 Misc. Nursing Order ordered. sd1 14:45 Accucheck ordered. sd1 01 00:29 ED course: dr berkowitz faxed formal report of cta for fu mlg. ml 12:07 T-Sheet-- Draft Copy was scanned into [employer] and attached to record. gb 12:07 ECG/EKG was scanned into [employer] and attached to record. gb 12:08 Radiology Report was scanned into [employer] and attached to record. gb Point of Care Testing: Blood Glucose: 12/03 14:57 Blood Glucose: 339 mg/dL; js13 Ranges: Administered Medications: 10:57 Drug: Solu-MEDROL 125 mg [Solu-Medrol 500 mg intravenous solution (125 mg)] Route: IVP; js13 Site: left antecubital; 10:59 Drug: Albuterol-Ipratropium 1 neb [ipratropium-albuterol 0.5 mg-3 mg(2.5 mg base)/3 mL kt1 nebulization soln (1 neb)] Route: Nebulizer; 11:15 Drug: Albuterol-Ipratropium 1 neb [ipratropium-albuterol 0.5 mg-3 mg(2.5 mg base)/3 mL kt1 nebulization soln (1 neb)] Route: Nebulizer; 11:28 Drug: Albuterol-Ipratropium 1 neb [ipratropium-albuterol 0.5 mg-3 mg(2.5 mg base)/3 mL kt1 nebulization soln (1 neb)] Route: Nebulizer; 12:12 Drug: NS 0.9% 1000 ml [sodium chloride 0.9 % intravenous solution] Route: IV; Rate: js13 bolus; Site: left antecubital; 15:43 Follow up: IV Status: Completed infusion; IV Intake: 1000ml js13 Signatures: Dispatcher [employer] EDMS Shayy Joseph MD MD sd1 Amish Lockwood MD MD ml Siobhan Snider, Risk And Insurance Manager Unit lbd Anushka Cotter RN RN kpj Anjali Ruelas, Reg Reg Mesha Guido RN RN js13 Jose Enrique Etienne mm15 Tari Fisher kt1 The chart was reviewed and I authenticate all verbal orders and agree with the evaluation and treatment provided.Corrections: (The following items were deleted from the chart) 10:52 10:51 BLOOD CULTURES ordered. EDMS EDMS 11:12 10:22 Chest, 1 view+XR ordered. EDMS EDMS Attachments: 12:06 [facility] Payment Agreement mm15 12/04 12:07 T-Sheet-- Draft Copy gb 12:07 ECG/EKG gb Chart Complete MTDD
--- NOTE | 2016-12-05 16:50 | EDDOCDS ---
Physician Documentation [facility] Name: Bal Stanley Age: 51 yrs Sex: Male : 1965 Arrival Date: 12/03/2016 Time: 10:14 Bed 7 Private MD: Ernesto Berkowitz Disposition: 12/03/16 15:27 Discharged to Home/Self Care. Impression: Dyspnea - resolving pneumonia. - Condition is Stable. - Discharge Instructions: Pneumonia, Adult, Shortness of Breath, [id number], Pneumonia, Adult, [id number], How to Use a Nebulizer. - Prescriptions for Prednisone 20 mg Oral Tablet - take 3 tablet by ORAL route once daily for 5 days; 15 tablet. Albuterol Sulfate 2.5 mg /3 mL (0.083 %) Inhalation Solution for Nebulization - inhale 1 unit by NEBULIZATION route 4 times per day As needed; 1 box. Home Nebulizer - Dx: (pneumonia). Duration: (3 months). - Medication Reconciliation, Local Pharmacy Hours form. - Follow up: Ernesto Berkowitz; When: Tomorrow. - Problem is an ongoing problem. - Symptoms have improved. Historical: - Allergies: No known drug Allergies; - Home Meds: 1. metformin 1,000 mg Oral tr24 1 tab twice a day 2. metoprolol tartrate 25 mg Oral tab 1 tab 2 times per day 3. omeprazole 40 mg Oral cpDR 1 cap once daily 4. Cinnamon 500 mg oral cap daily 5. azithromycin 250 mg Oral tab 1 tab once daily LAST DAY IS TOMORROW - PMHx: Hypertension; Diabetes - NIDDM: controlled; GERD; - PSHx: Tonsillectomy; - Social history: Smoking status: Patient states former smoker of tobacco. No barriers to communication noted, The patient speaks fluent Icelandic. - Family history: Not pertinent. - : The pt / caregiver states he / she is not on anticoagulants. Home medication list is obtained from the patient. - Exposure Risk Screening:: None identified. Vital Signs: 12/03 10:21 BP 136 / 98 (auto/); Pulse 96; Resp 18; Temp 96.9(O); Pulse Ox 96% on R/A; Weight js13 118.84 kg / 262 lbs; Height 5 ft. 11 in. (180.34 cm); Pain 0/10; 10:36 BP 141 / 92 (auto/); js13 10:36 Pulse 92 MON; Resp 18; Pulse Ox 96% on R/A; js13 10:51 BP 131 / 98 (auto/); js13 10:51 Pulse 92 MON; Resp 18; Pulse Ox 94% on R/A; js13 11:06 BP 132 / 90 (auto/); js13 11:06 Pulse 94 MON; Resp 18; Pulse Ox 96% on R/A; js13 11:21 BP 146 / 99 (auto/); js13 11:21 Pulse 108 MON; Resp 18; Pulse Ox 96% on R/A; js13 11:36 BP 123 / 77 (auto/); js13 11:36 Pulse 110 MON; Resp 18; Pulse Ox 93% on R/A; js13 11:51 BP 133 / 84 (auto/); js13 11:51 Pulse 108 MON; Resp 18; Pulse Ox 95% on R/A; js13 12:06 BP 147 / 91 (auto/); js13 12:06 Pulse 110 MON; Resp 18; Pulse Ox 95% on R/A; js13 12:32 BP 197 / 95 (auto/); js13 12:33 Pulse 100 MON; Resp 18; Pulse Ox 93% on R/A; js13 12:47 BP 132 / 84 (auto/); js13 12:47 Pulse 96 MON; Resp 20; Pulse Ox 95% on R/A; js13 13:02 BP 153 / 90 (auto/); js13 13:02 Pulse 114 MON; Resp 20; Pulse Ox 96% on R/A; js13 13:17 BP 143 / 82 (auto/); js13 13:17 Pulse 98 MON; Resp 18; Pulse Ox 93% on R/A; js13 13:32 BP 134 / 80 (auto/); js13 13:32 Pulse 96 MON; Resp 20; Pulse Ox 94% on R/A; js13 13:47 BP 131 / 80 (auto/); js13 13:47 Pulse 102 MON; Resp 18; Pulse Ox 95% on R/A; js13 14:02 BP 143 / 79 (auto/); js13 14:02 Pulse 98 MON; Resp 18; Pulse Ox 93% on R/A; js13 14:17 BP 146 / 94 (auto/); js13 14:17 Pulse 104 MON; Resp 18; Pulse Ox 94% on R/A; js13 14:32 BP 142 / 90 (auto/); js13 14:32 Pulse 102 MON; Resp 18; Pulse Ox 94% on R/A; js13 15:02 BP 154 / 87 (auto/); js13 15:02 Pulse 98 MON; Resp 18; Pulse Ox 95% on R/A; js13 15:17 BP 147 / 86 (auto/); js13 15:17 Pulse 104 MON; Resp 18; Pulse Ox 96% on R/A; js13 15:32 BP 141 / 81 (auto/); js13 15:32 Pulse 110 MON; Resp 18; Temp 97.1(O); Pulse Ox 94% on R/A; Pain 0/10; js13 10:21 Body Mass Index 36.54 (118.84 kg, 180.34 cm) js13 10:36 patient took off O2 js13 MDM: 10:20 -Blood Culture (Adults Only), peripheral from different site, or from device/port/PICC sd1 etc. if present ordered. 10:20 Fine Arts Teacher/Pulse Ox/q 15 min VS ordered. sd1 10:20 IV Saline Lock ordered. sd1 10:20 Oxygen at 4L/Min NC or Home dosage ordered. sd1 10:20 Rhythm Strip to chart ordered. sd1 10:22 B-Type Natiuretic Peptide Ordered. EDMS 10:22 Basic Metabolic Profile Ordered. EDMS 10:22 CBC with Diff Ordered. EDMS 10:22 Cardiac Injury Profile Ordered. EDMS 10:22 Troponin Ordered. EDMS 10:22 -Blood Culture Ordered. EDMS 10:22 ECG WITH READING ER PHYS+CARDIAG ordered. EDMS 10:48 -Blood Culture (Adults Only), peripheral from different site, or from device/port/PICC lbd etc. if present complete. 10:51 Albuterol-Ipratropium 1 neb Nebulizer every 20 minutes x3 ordered. sd1 10:51 Solu-MEDROL 125 mg IVP once ordered. sd1 10:56 BLOOD CULTURES Ordered. EDMS 10:57 Solu-MEDROL 125 mg IVP once ordered. js13 11:52 Basic Metabolic Profile Reviewed. sd1 11:52 B-Type Natiuretic Peptide Reviewed. sd1 11:52 CBC with Diff Reviewed. sd1 11:52 Cardiac Injury Profile Reviewed. sd1 11:52 Troponin Reviewed. sd1 11:54 CT Chest Angio R/O PE Ordered. EDMS 12:05 Financial registration complete. mm15 12:06 [facility] Payment Agreement was scanned into [employer] and attached to record. mm15 12:10 NS 0.9% 1000 ml IV at bolus once ordered. sd1 14:01 Misc. Nursing Order ordered. sd1 14:45 Accucheck ordered. sd1 01 00:29 ED course: dr berkowitz faxed formal report of cta for fu mlg. ml 12:07 T-Sheet-- Draft Copy was scanned into [employer] and attached to record. gb 12:07 ECG/EKG was scanned into [employer] and attached to record. gb 12:08 Radiology Report was scanned into [employer] and attached to record. gb Point of Care Testing: Blood Glucose: 12/03 14:57 Blood Glucose: 339 mg/dL; js13 Ranges: Administered Medications: 10:57 Drug: Solu-MEDROL 125 mg [Solu-Medrol 500 mg intravenous solution (125 mg)] Route: IVP; js13 Site: left antecubital; 10:59 Drug: Albuterol-Ipratropium 1 neb [ipratropium-albuterol 0.5 mg-3 mg(2.5 mg base)/3 mL kt1 nebulization soln (1 neb)] Route: Nebulizer; 11:15 Drug: Albuterol-Ipratropium 1 neb [ipratropium-albuterol 0.5 mg-3 mg(2.5 mg base)/3 mL kt1 nebulization soln (1 neb)] Route: Nebulizer; 11:28 Drug: Albuterol-Ipratropium 1 neb [ipratropium-albuterol 0.5 mg-3 mg(2.5 mg base)/3 mL kt1 nebulization soln (1 neb)] Route: Nebulizer; 12:12 Drug: NS 0.9% 1000 ml [sodium chloride 0.9 % intravenous solution] Route: IV; Rate: js13 bolus; Site: left antecubital; 15:43 Follow up: IV Status: Completed infusion; IV Intake: 1000ml js13 Signatures: Dispatcher [employer] EDMS Shayy Joseph MD MD sd1 Amish Lockwood MD MD ml Siobhan Snider, Rehabilitation Medicine Physician Unit lbd Anushka Cotter RN RN kpj Anjali Ruelas, Reg Reg Mesha Guido RN RN js13 Jose Enrique Etienne mm15 Tari Fisher kt1 The chart was reviewed and I authenticate all verbal orders and agree with the evaluation and treatment provided.Corrections: (The following items were deleted from the chart) 10:52 10:51 BLOOD CULTURES ordered. EDMS EDMS 11:12 10:22 Chest, 1 view+XR ordered. EDMS EDMS Attachments: 12:06 [facility] Payment Agreement mm15 12/04 12:07 T-Sheet-- Draft Copy gb 12:07 ECG/EKG gb Chart Complete MTDD
--- NOTE | 2016-12-05 16:50 | EDDOCDS ---
Nurse's Notes [facility] Name: Bal Stanley Age: 51 yrs Sex: Male : 1965 Arrival Date: 12/03/2016 Time: 10:14 Bed 7 Private MD: Ernesto Cheng Diagnosis: Dyspnea-resolving pneumonia Presentation: 12/03 10:24 Presenting complaint: Patient states: Patient being followed by Dr Cheng for possible js13 pneumonia. Patient brought over from outpatient lab for increasing SOB. Patient had chest x ray and labs drawn this morning. Adult Sepsis Screening: The patient does not have new or worsening altered mentation. Patient's respiratory rate is less than 22. Systolic blood pressure is greater than 100. Patient has a qSOFA score of 0- Negative Sepsis Screen. Suicide/Homicide risk assessment- the patient denies having any suicidal and/or homicidal ideations and does not present with any other emotional, behavioral or mental health complaints. 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 Transition of care: patient was not received from another setting of care. 10:24 Acuity: ARUN Level 3 js13 10:24 Method Of Arrival: Wheelchair js13 Triage Assessment: 10:30 General: Appears in no apparent distress, Behavior is appropriate for age, cooperative. js13 Pain: Denies pain. Pt Declines HIV testing. The patient is triaged at the bedside. See Assessment in Nurses Notes section of ED record. Neurological: Level of Consciousness is awake, alert. Cardiovascular: Rhythm is sinus rhythm Chest pain is denied. Respiratory: Onset: The symptoms/episode began/occurred PAST WEEK, Airway is patent Respiratory effort is even, Respiratory pattern is regular, Breath sounds are diminished. Derm: Skin is pink, warm & dry. Historical: - Allergies: No known drug Allergies; - Home Meds: 1. metformin 1,000 mg Oral tr24 1 tab twice a day 2. metoprolol tartrate 25 mg Oral tab 1 tab 2 times per day 3. omeprazole 40 mg Oral cpDR 1 cap once daily 4. Cinnamon 500 mg oral cap daily 5. azithromycin 250 mg Oral tab 1 tab once daily LAST DAY IS TOMORROW - PMHx: Hypertension; Diabetes - NIDDM: controlled; GERD; - PSHx: Tonsillectomy; - Social history: Smoking status: Patient states former smoker of tobacco. No barriers to communication noted, The patient speaks fluent Japanese. - Family history: Not pertinent. - : The pt / caregiver states he / she is not on anticoagulants. Home medication list is obtained from the patient. - Exposure Risk Screening:: None identified. Screenin:31 Screening information is obtained from the patient. Fall risk: No risks identified. js13 Assistance ADL's: requires no assistance with activities of daily living. Abuse/DV Screen: The patient / caregiver reports he/she is: not in a situation that causes fear, pain or injury. Nutritional screening: No deficits noted. Advance Directives: There is no active DNR order. home support is adequate. Assessment: 10:31 General: Appears in no apparent distress, Behavior is appropriate for age, cooperative. js13 Pain: Denies pain. Neurological: Level of Consciousness is awake, alert. Cardiovascular: Rhythm is sinus rhythm Chest pain is denied. Respiratory: Airway is patent Respiratory effort is even, labored, Respiratory pattern is regular, symmetrical, Breath sounds are diminished. Derm: Skin is pink, warm & dry. 11:22 General: Appears in no apparent distress, Behavior is appropriate for age, cooperative. js13 Pain: Denies pain. Neurological: Level of Consciousness is awake, alert. Cardiovascular: Rhythm is sinus rhythm Chest pain is denied. Respiratory: Airway is patent Respiratory effort is even, unlabored, Respiratory pattern is regular. Derm: Skin is pink, warm & dry. 12:10 Adult Sepsis Screening: The patient does not have new or worsening altered mentation. js13 Patient's respiratory rate is less than 22. Systolic blood pressure is greater than 100. Patient has a qSOFA score of 0- Negative Sepsis Screen. General: Appears in no apparent distress, comfortable, Behavior is appropriate for age, cooperative. Pain: Denies pain. Neurological: Level of Consciousness is awake, alert. Cardiovascular: Rhythm is sinus rhythm Chest pain is denied. Respiratory: Airway is patent Respiratory effort is even, unlabored, Respiratory pattern is regular, symmetrical, Breath sounds are diminished. Derm: Skin is pink, warm & dry. 13:37 General: Appears in no apparent distress, comfortable, Behavior is appropriate for age, js13 cooperative. Pain: Denies pain. Neurological: Level of Consciousness is awake, alert. Cardiovascular: Rhythm is sinus rhythm Chest pain is denied. Respiratory: Airway is patent Respiratory effort is even, unlabored, Respiratory pattern is regular, symmetrical, Breath sounds are diminished. Derm: Skin is pink, warm & dry. 14:14 General: Appears in no apparent distress, Behavior is appropriate for age, cooperative. js13 General: Patient ambulated in hallway with no complications. Patients O2 sat range was 95 to 97% on RA.. Pain: Denies pain. Neurological: Level of Consciousness is awake, alert. Cardiovascular: Rhythm is sinus tachycardia Chest pain is denied. Respiratory: Airway is patent Respiratory effort is even, unlabored, Respiratory pattern is regular, symmetrical. Derm: Skin is pink, warm & dry. 14:57 General: Patient states he has a $6000 deductible on his insurance and is unable to js13 afford his medications and if he needs insulin to control his sugars he will not be taking it if it is too expensive. . 15:41 Adult Sepsis Screening: The patient does not have new or worsening altered mentation. js13 Patient's respiratory rate is less than 22. Systolic blood pressure is greater than 100. Patient has a qSOFA score of 0- Negative Sepsis Screen. General: Appears in no apparent distress, comfortable, Behavior is appropriate for age, cooperative. Pain: Denies pain. Neurological: Level of Consciousness is awake, alert. Cardiovascular: Rhythm is sinus tachycardia Chest pain is denied. Respiratory: Airway is patent Respiratory effort is even, unlabored, Respiratory pattern is regular, symmetrical, Breath sounds are diminished. Derm: Skin is pink, warm & dry. Vital Signs: 10:21 BP 136 / 98 (auto/); Pulse 96; Resp 18; Temp 96.9(O); Pulse Ox 96% on R/A; Weight js13 118.84 kg; Height 5 ft. 11 in. (180.34 cm); Pain 0/10; 10:36 BP 141 / 92 (auto/); js13 10:36 Pulse 92 MON; Resp 18; Pulse Ox 96% on R/A; js13 10:51 BP 131 / 98 (auto/); js13 10:51 Pulse 92 MON; Resp 18; Pulse Ox 94% on R/A; js13 11:06 BP 132 / 90 (auto/); js13 11:06 Pulse 94 MON; Resp 18; Pulse Ox 96% on R/A; js13 11:21 BP 146 / 99 (auto/); js13 11:21 Pulse 108 MON; Resp 18; Pulse Ox 96% on R/A; js13 11:36 BP 123 / 77 (auto/); js13 11:36 Pulse 110 MON; Resp 18; Pulse Ox 93% on R/A; js13 11:51 BP 133 / 84 (auto/); js13 11:51 Pulse 108 MON; Resp 18; Pulse Ox 95% on R/A; js13 12:06 BP 147 / 91 (auto/); js13 12:06 Pulse 110 MON; Resp 18; Pulse Ox 95% on R/A; js13 12:32 BP 197 / 95 (auto/); js13 12:33 Pulse 100 MON; Resp 18; Pulse Ox 93% on R/A; js13 12:47 BP 132 / 84 (auto/); js13 12:47 Pulse 96 MON; Resp 20; Pulse Ox 95% on R/A; js13 13:02 BP 153 / 90 (auto/); js13 13:02 Pulse 114 MON; Resp 20; Pulse Ox 96% on R/A; js13 13:17 BP 143 / 82 (auto/); js13 13:17 Pulse 98 MON; Resp 18; Pulse Ox 93% on R/A; js13 13:32 BP 134 / 80 (auto/); js13 13:32 Pulse 96 MON; Resp 20; Pulse Ox 94% on R/A; js13 13:47 BP 131 / 80 (auto/); js13 13:47 Pulse 102 MON; Resp 18; Pulse Ox 95% on R/A; js13 14:02 BP 143 / 79 (auto/); js13 14:02 Pulse 98 MON; Resp 18; Pulse Ox 93% on R/A; js13 14:17 BP 146 / 94 (auto/); js13 14:17 Pulse 104 MON; Resp 18; Pulse Ox 94% on R/A; js13 14:32 BP 142 / 90 (auto/); js13 14:32 Pulse 102 MON; Resp 18; Pulse Ox 94% on R/A; js13 15:02 BP 154 / 87 (auto/); js13 15:02 Pulse 98 MON; Resp 18; Pulse Ox 95% on R/A; js13 15:17 BP 147 / 86 (auto/); js13 15:17 Pulse 104 MON; Resp 18; Pulse Ox 96% on R/A; js13 15:32 BP 141 / 81 (auto/); js13 15:32 Pulse 110 MON; Resp 18; Temp 97.1(O); Pulse Ox 94% on R/A; Pain 0/10; js13 10:21 Body Mass Index 36.54 (118.84 kg, 180.34 cm) js13 10:36 patient took off O2 js13 ED Course: 10:15 Patient visited by Siobhan Snider, Iron Piler. lbd 10:15 Patient moved to Waiting lbd 10:16 Ernesto Cheng is Private Physician. lbd 10:17 Mesha Steele,RN is Primary Nurse. kpj 10:17 Patient moved to 7 [facility] 10:26 Triage Initiated js13 10:31 Patient has correct armband on for positive identification. Placed in gown. Bed in low ct3 position. Call light in reach. Side rails up X2. secured entrance monitor on. Pulse ox on. NIBP on. 10:31 The patient / caregiver is instructed regarding the plan of care and ED course. js13 10:31 EKG done. (by ED staff). Reviewed by Shayy Joseph MD. ct3 10:31 No procedures done that require assistance. js13 10:32 Patient visited by Josee Powell PCA. ct3 10:32 Patient visited by Mesha Steele,ROSA M. js13 10:45 Shayy Joseph MD is Attending Physician. sd1 10:45 Patient visited by Shayy Joseph MD. sd1 10:52 -Blood Culture Sent. js13 10:52 B-Type Natiuretic Peptide Sent. 13 10:52 Basic Metabolic Profile Sent. 13 10:52 CBC with Diff Sent. 13 10:52 Cardiac Injury Profile Sent. js13 10:52 Troponin Sent. js13 10:52 Inserted saline lock: 18 gauge in left antecubital area and blood collected. The js13 patient tolerated the procedure well. Labs drawn. (by ED staff). Sent per order to lab. Labs/Blood culture drawn. 10:57 BLOOD CULTURES Sent. js13 11:24 Patient visited by Mesha Steele RN. js13 12:06 [facility] Payment Agreement was scanned into Search to Phone and attached to record. mm15 12:11 Patient visited by Mesha Steele RN. js13 12:46 Patient visited by Josee Powell PCA. ct3 13:39 Patient visited by Mesha Steele RN. js13 14:16 Patient visited by Mesha Steele RN. js13 15:20 Patient visited by Josee Powell PCA. ct3 15:27 Ernesto Cheng is Referral Physician. sd1 15:41 Discontinued IV lock intact, bleeding controlled, pressure dressing applied, No js13 redness/swelling at site. 17:23 CT Chest Angio R/O PE Returned. EDMS 12/04 12:07 T-Sheet-- Draft Copy was scanned into Search to Phone and attached to record. gb 12:07 ECG/EKG was scanned into Search to Phone and attached to record. gb 12:08 Radiology Report was scanned into Search to Phone and attached to record. gb 20:04 EKG-ADULT Returned. EDMS Administered Medications: 12/03 10:57 Drug: Solu-MEDROL 125 mg [Solu-Medrol 500 mg intravenous solution (125 mg)] Route: IVP; js13 Site: left antecubital; 10:59 Drug: Albuterol-Ipratropium 1 neb [ipratropium-albuterol 0.5 mg-3 mg(2.5 mg base)/3 mL kt1 nebulization soln (1 neb)] Route: Nebulizer; 11:15 Drug: Albuterol-Ipratropium 1 neb [ipratropium-albuterol 0.5 mg-3 mg(2.5 mg base)/3 mL kt1 nebulization soln (1 neb)] Route: Nebulizer; 11:28 Drug: Albuterol-Ipratropium 1 neb [ipratropium-albuterol 0.5 mg-3 mg(2.5 mg base)/3 mL kt1 nebulization soln (1 neb)] Route: Nebulizer; 12:12 Drug: NS 0.9% 1000 ml [sodium chloride 0.9 % intravenous solution] Route: IV; Rate: js13 bolus; Site: left antecubital; 15:43 Follow up: IV Status: Completed infusion; IV Intake: 1000ml js13 Point of Care Testing: Blood Glucose: 14:57 Blood Glucose: 339 mg/dL; js13 Ranges: Intake: 15:43 IV: 1000.00ml; Total: 1000.00ml. js13 RT: 10:59 Initial Med Neb Given as ordered Patient was instructed and evaluated on procedure. kt1 Respiratory: Breath sounds are clear Breath sounds are diminished bilaterally. 11:15 Subsequent Med Neb Given as ordered. kt1 11:29 Subsequent Med Neb Given as ordered. kt1 Order Results: Lab Order: -Blood Culture; SPEC'M 12/03/16 10:49 Test: BLOOD CULTURE; Value: No growth after 24 hours . All specimens observed; Status: F Test: BLOOD CULTURE; Value: for 5 days. Results final at that time.; Status: F Test: BLOOD CULTURE; Value: No Growth after 48 hours. All Specimens observed; Status: F Test: BLOOD CULTURE; Value: for 7 days. Results final at that time.; Status: F Lab Order: B-Type Natiuretic Peptide; SPEC'M 12/03/16 10:49 Test: BRAIN NATRIURETIC PEPTIDE; Value: 7.4; Range: <100; Units: PG/ML; Status: F Lab Order: Basic Metabolic Profile; SPEC'M 12/03/16 10:49 Test: GLUCOSE, FASTING; Value: 368; Range: 70-105; Abnormal: Above high normal; Units: MG/DL; Status: F Test: BLOOD UREA NITROGEN; Value: 17; Range: 7-18; Units: MG/DL; Status: F Test: CREATININE FOR GFR; Value: 0.80; Range: 0.70-1.30; Units: MG/DL; Status: F Test: GLOMERULAR FILTRATION RATE; Value: > 60.0; Range: >56; Status: F Test: SODIUM LEVEL; Value: 137; Range: 136-145; Units: MEQ/L; Status: F Test: POTASSIUM SERUM; Value: 4.4; Range: 3.5-5.1; Units: MEQ/L; Status: F Test: CHLORIDE LEVEL; Value: 101; Range: 98-107; Units: MEQ/L; Status: F Test: CARBON DIOXIDE LEVEL; Value: 24; Range: 21-32; Units: MEQ/L; Status: F Test: ANION GAP; Value: 12; Range: 8-16; Units: MEQ/L; Status: F Test: CALCIUM LEVEL; Value: 9.1; Range: 8.5-10.1; Units: MG/DL; Status: F Test Note: ; Units are mL/min/1.73 m2 Chronic Kidney Disease Staging per NKF: Stage I & II GFR >=60 Normal to Mildly Decreased Stage III GFR 30-59 Moderately Decreased Stage IV GFR 15-29 Severely Decreased Stage V GFR <15 Very Little GFR Left ESRD GFR <15 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 Lab Order: CBC with Diff; SPEC'M 12/03/16 10:49 Test: WHITE BLOOD COUNT; Value: 9.5; Range: 4.0-10.0; Units: K/mm3; Status: F Test: RED BLOOD COUNT; Value: 5.18; Range: 4.30-6.10; Units: M/mm3; Status: F Test: HEMOGLOBIN; Value: 15.7; Range: 14.0-18.0; Units: g/dl; Status: F Test: HEMATOCRIT; Value: 47.5; Range: 42.0-52.0; Units: %; Status: F Test: MEAN CORPUSCULAR VOLUME; Value: 91.6; Range: 80.0-96.0; Units: fl; Status: F Test: MEAN CORPUSCULAR HEMOGLOBIN; Value: 30.3; Range: 27.0-33.0; Units: pg; Status: F Test: MEAN CORPUSCULAR HGB CONC; Value: 33.1; Range: 32.0-36.5; Units: g/dl; Status: F Test: RED CELL DISTRIBUTION WIDTH; Value: 12.4; Range: 11.5-14.5; Units: %; Status: F Test: PLATELET COUNT, AUTOMATED; Value: 317; Range: 150-450; Units: k/mm3; Status: F Test: NEUTROPHILS %; Value: 63.1; Range: 36.0-66.0; Units: %; Status: F Test: LYMPH %; Value: 29.0; Range: 24.0-44.0; Units: %; Status: F Test: MONO %; Value: 4.0; Range: 0.0-5.0; Units: %; Status: F Test: EOS %; Value: 1.7; Range: 0.0-3.0; Units: %; Status: F Test: BASO %; Value: 0.9; Range: 0.0-1.0; Units: %; Status: F Test: LARGE UNSTAINED CELL %; Value: 1.4; Range: 0.0-4.0; Units: %; Status: F Test: NEUTROPHILS #; Value: 6.0; Range: 1.8-7.7; Units: K/mm3; Status: F Test: LYMPH #; Value: 2.8; Range: 1.5-4.5; Units: K/mm3; Status: F Test: MONO #; Value: 0.4; Range: 0.0-0.8; Units: K/mm3; Status: F Test: EOS #; Value: 0.2; Range: 0.0-0.50; Units: K/mm3; Status: F Test: BASO #; Value: 0.1; Range: 0.0-0.2; Units: K/mm3; Status: F Test: LARGE UNSTAINED CELL #; Value: 0.1; Range: 0.0-0.4; Units: K/mm3; Status: F Lab Order: Cardiac Injury Profile; SPEC'M 12/03/16 10:49 Test: CPK CREATINE PHOSPHOKINASE; Value: 103; Range: 39-308; Units: U/L; Status: F Test: CK-MB VALUE MASS; Value: 1.0; Range: 0.0-3.6; Units: NG/ML; Status: F Test: MB/CK RELATIVE INDEX; Value: 0.97; Range: < OR =4; Status: F Test Note: ; DIAGNOSIS CRITERIA MMB ng/ml Relative Index (RI) NON-AMI < or = 5 N/A MOSER ZONE > 5 < or = 4 AMI > 5 > 4 Lab Order: Troponin; SPEC'M 12/03/16 10:49 Test: TROPONIN I; Value: < 0.02; Range: < 0.10; Units: NG/ML; Status: F Test Note: ; Troponin I Reference Interval for Trending Taste LOCI: 99th Percentile= 0.00-0.045 ng/ml Risk Stratification: <= 0.10 ng/ml Decreased Risk for Adverse Clinical Events. 0.10-1.50 ng/ml Increased Risk for Adverse Clinical Events. Evaluation of additional criterion and/or repeat testing in 2-6 hours is suggested to rule out myocardial damage. >= 1.50 ng/ml Indicative of Myocardial Injury. Lab Order: BLOOD CULTURES; SPEC'M 12/03/16 10:48 Test: BLOOD CULTURE; Value: No growth after 24 hours . All specimens observed; Status: F Test: BLOOD CULTURE; Value: for 5 days. Results final at that time.; Status: F Test: BLOOD CULTURE; Value: No Growth after 48 hours. All Specimens observed; Status: F Test: BLOOD CULTURE; Value: for 7 days. 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; : 1965 Requested By: Shayy Joseph; Order Number: [id number] Reading MD: Shayy Joseph; Measurements; Intervals [place]; Rate: 90 P: 11; ID: [id number] QRS: -27; QRSD: 85 T: -19; QT: 343; QTc: 421; Interpretive Statements; SINUS RHYTHM; BORDERLINE LEFT AXIS DEVIATION; VOLTAGE CRITERIA FOR LVH; SIMIALR 11/01/16; Electronically Signed On 12-04-2016 19:37:10 EST by Shayy Joseph; Radiology Order: CT Chest Angio R/O PE Test: CT Chest Angio R/O PE REASON FOR EXAMINATION: Cough; CTA chest,12/03/2016:; ; Indication: Cough.; ; Comparison: PA and lateral chest 08/03/2017 and 10/18/2016.; ; Technique: Following dynamic IV contrast administration of 75 ml Isovue 370; mg/ml IV, 3 mm contiguous spiral axial sections were performed through the; chest.; ; Findings: Mild aneurysmal dilatation in ascending thoracic aorta, which measures; 4.2 cm in AP by 4.2 cm transverse dimension in the ascending portion. There is; no aortic dissection or mediastinal hematoma. There is homogeneous opacification; of the bilateral main, lobar and proximal segmental pulmonary arteries.; Evaluation of distal pulmonary arteries is somewhat limited contributed to by; large body habitus. There are multiple small nonspecific mediastinal nodes, none; of which are pathologically enlarged.; ; Interstitial scarring and/or atelectatic changes noted in the lung bases; bilaterally. There are no alveolar infiltrates, pulmonary nodules, or pleural; effusions.; ; Visualized portions of liver demonstrates mild diffuse fatty infiltration. There; is mild hepatomegaly with liver 20.4 cm craniocaudal dimension. Visualized; portions of spleen, pancreas, gallbladder, adrenal glands and stomach are within; normal limits. There are multiple small fern hepatis and retroperitoneal nodes,; none of which are pathologically enlarged.; ; Impression: 1. No central pulmonary artery emboli are identified through the; proximal segmental pulmonary artery levels. The more peripheral pulmonary; arteries are limited in evaluation contributed to by large body habitus.2. Mild; aneurysmal dilatation of ascending thoracic aorta measuring 4.2 x 4.2 cm. No; aortic dissection.3. Bilateral interstitial changes most compatible with; interstitial fibrotic scarring especially in the lung bases. Differential; diagnosis can include atelectatic changes.4. Multiple small fern; hepatis/retroperitoneal nodes, none of which are pathologically enlarged.5. Mild; hepatomegaly, fatty infiltration of liver.; ; ; Signed by; Rossy Sparks MD 12/03/2016 08:12 P; Outcome: 15:27 Discharge ordered by Provider. sd1 15:41 CT Study completed. [facility] 15:41 Discharge Assessment: Patient awake, alert and oriented x 3. No cognitive and/or [facility] functional deficits noted. Patient verbalized understanding of disposition instructions. patient administered narcotics - no. Property :Personal belongings accompany Pt. 15:41 The following High Risk Discharge criteria are identified: None. Discharged to home via 13 ambulance, with friend. Condition: stable. Discharge instructions given to patient, Instructed on discharge instructions, follow up and referral plans. medication usage, Demonstrated understanding of instructions, medications, Pt was receptive of discharge instructions/ teaching. Prescriptions given X 3. 15:48 Patient left the ED. [facility] Signatures: Dispatcher [employer] EDMS Randhawa-Nevarez, MD JR Lucas sd1 Siobhan Snider, Iron Piler Unit lbd Anushka Cotter RN RN kpj Anjali Ruelas, Burak Reg Tari Samano kt1 Josee Powell, DEMONSTRATOR SALES DEMONSTRATOR SALES ct3 Cedric,ROSA M Zimmer RN js13 Jose Enrique Etienne mm15 Chart Complete MTDD
== END 2016-12-03 15:48 | disposition home or self-care (01) ==
LOC: M ED 10:14
DX: J06.9 Acute upper respiratory infection, unspecified (principal); I10 Essential (primary) hypertension; E11.9 Type 2 diabetes mellitus without complications; K21.9 Gastro-esophageal reflux disease without esophagitis; Z87.891 Personal history of nicotine dependence; Z79.84 Long term (current) use of oral hypoglycemic drugs; Z79.899 Other long term (current) drug therapy
CPT/HCPCS: 36415; 71275; 80048; 82550; 82553; 83880; 85025; 87040; 93005; 93041; 94640; 96361; 96374; 99285; J2930; Q9967

== ENCOUNTER → 2016-12-03 | Outpatient (CLI) | payer BC ==
[2016-12-03 10:22] LABS: MEAN CORPUSCULAR HEMOGLOBIN 30.1 pg (27.0-33.0); MEAN CORPUSCULAR HGB CONC 32.7 g/dl (32.0-36.5); MEAN CORPUSCULAR VOLUME 91.9 fl (80.0-96.0); RED CELL DISTRIBUTION WIDTH 13.2 % (11.5-14.5); WHITE BLOOD COUNT 10.6 K/mm3 (4.0-10.0)
[2016-12-03 10:38] LABS: ALBUMIN 3.6 GM/DL (3.2-5.2); ALBUMIN/GLOBULIN RATIO 0.95 (1.00-1.93); ALKALINE PHOSPHATASE 109 U/L (45-117); ALT/SGPT 138 U/L (12-78); ANION GAP 11 MEQ/L (8-16); AST/SGOT 78 U/L (15-37); BILIRUBIN,TOTAL 0.4 MG/DL (0.2-1.0); BLOOD UREA NITROGEN 16 MG/DL (7-18); CALCIUM LEVEL 9.3 MG/DL (8.5-10.1); CARBON DIOXIDE LEVEL 26 MEQ/L (21-32); CHLORIDE LEVEL 99 MEQ/L (98-107); CHOLESTEROL LEVEL 235 MG/DL (<200); CREATININE FOR GFR 0.84 MG/DL (0.70-1.30); GLOMERULAR FILTRATION RATE > 60.0 (>56); GLUCOSE, FASTING 377 MG/DL (70-105); POTASSIUM SERUM 4.6 MEQ/L (3.5-5.1); SODIUM LEVEL 136 MEQ/L (136-145); TOTAL PROTEIN 7.4 GM/DL (6.4-8.2); TRIGLYCERIDES LEVEL 269 MG/DL (<150)
--- NOTE | 2016-12-03 18:28 | REP ---
CHEST X-RAY, TWO VIEWS: HISTORY: Pneumonia, followup. COMPARISON: Chest x-ray 10/18/2016. FINDINGS: The lungs are symmetrically aerated and free of infiltrate. Pleural angles are sharp. Heart size is normal. Pulmonary vasculature is not increased. There are mild degenerative changes in the thoracic spine. IMPRESSION: No active disease. Signed by Iam Delatorre MD 12/03/2016 06:59 P
== END ==
LOC: M LAB 09:40
PROVIDERS: ATTEND Family Medicine
DX: J18.9 Pneumonia, unspecified organism (principal); R53.83 Other fatigue

== ENCOUNTER → 2017-07-09 | Outpatient (CLI) | payer BC ==
[2017-07-09 12:59] LABS: MEAN CORPUSCULAR HEMOGLOBIN 30.7 pg (27.0-33.0); MEAN CORPUSCULAR HGB CONC 33.5 g/dl (32.0-36.5); MEAN CORPUSCULAR VOLUME 91.4 fl (80.0-96.0); WHITE BLOOD COUNT 9.5 K/mm3 (4.0-10.0)
[2017-07-09 13:25] LABS: ALBUMIN 3.8 GM/DL (3.2-5.2); ALBUMIN/GLOBULIN RATIO 1.03 (1.00-1.93); ALKALINE PHOSPHATASE 82 U/L (45-117); ALT/SGPT 66 U/L (12-78); ANION GAP 9 MEQ/L (8-16); AST/SGOT 28 U/L (15-37); BILIRUBIN,TOTAL 0.4 MG/DL (0.2-1.0); BLOOD UREA NITROGEN 14 MG/DL (7-18); CALCIUM LEVEL 9.6 MG/DL (8.5-10.1); CARBON DIOXIDE LEVEL 27 MEQ/L (21-32); CHLORIDE LEVEL 102 MEQ/L (98-107); CREATININE FOR GFR 0.66 MG/DL (0.70-1.30); GLOMERULAR FILTRATION RATE > 60.0 (>56); GLUCOSE, FASTING 179 MG/DL (70-105); POTASSIUM SERUM 4.3 MEQ/L (3.5-5.1); SODIUM LEVEL 138 MEQ/L (136-145); TOTAL PROTEIN 7.5 GM/DL (6.4-8.2)
--- NOTE | 2017-07-09 14:41 | REP ---
CERVICAL SPINE, EIGHT VIEWS: HISTORY: Hypertension. The cervical spine is visualized from C1 to the C5-6 level in the lateral radiographs. There is no acute fracture or subluxation. The C5-6 intervertebral disc is decreased in height consistent with disc degeneration. An osteophyte is present at C4. The neural foramina are patent. IMPRESSION: Degenerative change as described above. Signed by Lamont Mclaughlin MD 07/09/2017 02:52 P
--- NOTE | 2017-07-09 17:25 | REP ---
HISTORY: Hypertension. COMPARISON: Multiple, the latest 12/03/2016. FINDINGS: The superior mediastinal structures are midline. The cardiac silhouette is unremarkable in size, shape and position. The diaphragmatic surfaces of the lungs are regular and the costophrenic angles are clear. The pulmonary ponce are clear. The imaged osseous structures are intact. IMPRESSION: There is no acute cardiopulmonary disease. No change from prior exam. Signed by Collins Adam DO 07/09/2017 05:46 P
--- NOTE | 2017-07-09 23:02 | ECGEPIP ---
Stationary ECG Study Test Date: 2017-07-09 Pat Name: NEW VALE Department: Room: - Gender: M Deck Mate: YOSEF : 1965 Requested By: Ernesto Camacho Order Number: [id number] Reading MD: Elie Varela Measurements Intervals [place] Rate: 79 P: 56 AL: 152 QRS: -29 QRSD: 84 T: -12 QT: 366 QTc: 420 Interpretive Statements SINUS RHYTHM BORDERLINE LEFT AXIS DEVIATION MODERATE VOLTAGE CRITERIA FOR LVH, CONSIDER NORMAL VARIANT LAST TRACING ON 12/03/2016 AT 10:31:36, NO SIGNIFICANT CHANGES Electronically Signed On 07-09-2017 23:02:28 EDT by Elie Varela
== END ==
LOC: M LAB 11:50
PROVIDERS: ATTEND Family Medicine
DX: I10 Essential (primary) hypertension (principal); M79.2 Neuralgia and neuritis, unspecified; I20.9 Angina pectoris, unspecified

== ENCOUNTER → 2017-07-23 | Outpatient (CLI) | payer BC ==
--- NOTE | 2017-07-23 17:11 | REP ---
MR CERVICAL SPINE WITHOUT CONTRAST: HISTORY: Disc herniation. A disc bulge is present at the C3-4 level. There is mild effacement of the thecal sac without spinal cord compression. Bilateral uncinate process hypertrophy is present. This produces mild and minimal narrowing of the right and left C3 neural foramina respectively. A disc bulge is present at the C4-5 level. There is moderate effacement of the thecal sac without spinal cord compression. The C4 neural foramina are patent. A disc bulge is present at the C5-6 level . There is moderate effacement of the thecal sac without spinal cord compression. Bilateral uncinate process hypertrophy is present. This produces mild and minimal narrowing of the right and left C5 neural foramina respectively. A disc bulge is present at the C6-7 level. There is moderate effacement of the thecal sac without spinal cord compression. Bilateral uncinate process hypertrophy is present. This produces moderate narrowing of the C6 neural foramina. There is no other disc bulge or herniation. The remaining neural foramina are patent. The spinal cord is normal in signal intensity. The C3-4 through C6-7 intervertebral discs are decreased in height consistent with disc degeneration. Normal signal intensity is present in the cervical vertebral bodies. IMPRESSION: There is cervical spondylosis at the C3-4 through C6-7 levels without spinal cord compression. Signed by Lamont Mclaughlin MD 07/24/2017 08:26 A
== END ==
LOC: M RAD 14:24
PROVIDERS: ATTEND Family Medicine
DX: M43.12 Spondylolisthesis, cervical region (principal)

== ENCOUNTER 2017-12-31 10:00 | Emergency (ER) | payer BC ==
[2017-12-31 10:29] LABS: BASO # 0.1 10^3/uL (0.0-0.2); BASO % 0.8 % (0.0-1.0); EOS # 0.1 10^3/uL (0.0-0.50); EOS % 1.3 % (0.0-3.0); HEMATOCRIT 47.6 % (42.0-52.0); HEMOGLOBIN 16.2 g/dl (14.0-18.0); IMMATURE GRANULOCYTE # 0.1 10^3/uL (0-0); IMMATURE GRANULOCYTE % 0.7 % (0-0); LYMPH # 2.8 10^3/uL (1.5-4.5); LYMPH % 30.8 % (24.0-44.0); MEAN CORPUSCULAR HEMOGLOBIN 30.2 pg (27.0-33.0); MEAN CORPUSCULAR VOLUME 88.8 fl (80.0-96.0); MONO # 0.7 10^3/uL (0.0-0.8); MONO % 7.3 % (0.0-5.0); NEUTROPHILS # 5.4 10^3/uL (1.8-7.7); NEUTROPHILS % 59.1 % (36.0-66.0); PLATELET COUNT, AUTOMATED 319 10^3/uL (150-450); RED BLOOD COUNT 5.36 10^6/uL (4.30-6.10); RED CELL DISTRIBUTION WIDTH 12.3 % (11.5-14.5)
[2017-12-31 10:49] LABS: ANION GAP 7 MEQ/L (8-16); BLOOD UREA NITROGEN 18 MG/DL (7-18); CALCIUM LEVEL 9.4 MG/DL (8.5-10.1); CARBON DIOXIDE LEVEL 26 MEQ/L (21-32); CHLORIDE LEVEL 102 MEQ/L (98-107); CREATININE FOR GFR 0.85 MG/DL (0.70-1.30); GLOMERULAR FILTRATION RATE > 60.0 (>56); GLUCOSE, FASTING 361 MG/DL (70-100); MAGNESIUM LEVEL 2.4 MG/DL (1.8-2.4); POTASSIUM SERUM 4.4 MEQ/L (3.5-5.1); SODIUM LEVEL 135 MEQ/L (136-145)
[2017-12-31 10:52] LABS: LACTIC ACID SEPSIS PROTOCOL 1.9 MMOL/L (0.4-2.0)
[2017-12-31] MEDS ORDERED: ISOVUE-370 76% 100ML VIAL (Q9967) As Ordered (10:55)
[2017-12-31 11:05] LABS: BEDSIDE GLUCOSE 296 MG/DL (70-105)
[2017-12-31 12:59] LABS: CK-MB VALUE MASS 1.2 NG/ML (0.0-3.6); CPK CREATINE PHOSPHOKINASE 151 U/L (39-308); MB/CK RELATIVE INDEX 0.79 (< OR =4); TROPONIN I < 0.02 NG/ML (< 0.10)
[2017-12-31 13:31] LABS: CK-MB VALUE MASS 1.2 NG/ML (0.0-3.6); CPK CREATINE PHOSPHOKINASE 127 U/L (39-308); MB/CK RELATIVE INDEX 0.94 (< OR =4); TROPONIN I < 0.02 NG/ML (< 0.10)
== END 2017-12-31 14:04 | disposition home or self-care (01) ==
LOC: M ED 10:00
DX: R00.2 Palpitations (principal); R06.02 Shortness of breath; R07.89 Other chest pain; E11.9 Type 2 diabetes mellitus without complications; I10 Essential (primary) hypertension; F12.10 Cannabis abuse, uncomplicated; Z87.891 Personal history of nicotine dependence
CPT/HCPCS: Q9967

== ENCOUNTER → 2020-01-21 | Outpatient (CLI) | payer BC ==
[~2020-01-21] MED LIST: ALPR1TAB3; CARI1TAB7; FARXIGA; HYDR-3716; METF10004; METO25TA4; OMEP1CAP73
--- NOTE | 2020-01-21 11:16 | REP ---
Clinical: Hypertension . Comparison: 12/31/2017, 07/09/2017 . Technique: PA and lateral. Findings: The mediastinum and cardiac silhouette are normal. The lung ponce are clear and without acute consolidation, effusion, or pneumothorax. The skeletal structures are intact and normal. Impression: 1. No acute cardiopulmonary process. Electronically Signed by Liam Nelson MD 01/21/2020 11:08 A
--- NOTE | 2020-01-21 11:31 | ECGEPIP ---
[facility] Test Date: 2020-01-21 Pat Name: NEW VALE Department: Room: - Gender: Male Management Professional: YOSEF : 1965 Requested By: Ernesto Camacho Order Number: [id number] Reading MD: Reji Shaw Measurements Intervals [place] Rate: 70 P: 39 AR: 161 QRS: -37 QRSD: 76 T: -58 QT: 382 QTc: 413 Interpretive Statements SINUS RHYTHM VOLTAGE CRITERIA FOR LVH Left axis deviation. Nonspecific ST-T abnormalities. Decreased heart rate compared with 12/21/2017. Electronically Signed on 01-21-2020 11:31:46 EST by Reji Shaw
[2020-01-21 11:32] LABS: HEMATOCRIT 47.6 % (42.0-52.0); HEMOGLOBIN 16.2 g/dl (13.5-17.5); MEAN CORPUSCULAR HEMOGLOBIN 30.3 pg (27.0-33.0); MEAN CORPUSCULAR VOLUME 89.1 fl (80.0-96.0); PLATELET COUNT, AUTOMATED 338 10^3/uL (150-450); RED BLOOD COUNT 5.34 10^6/uL (4.30-6.10); WHITE BLOOD COUNT 9.9 10^3/uL (4.0-10.0)
[2020-01-21 12:13] LABS: ALBUMIN 3.9 GM/DL (3.2-5.2); ALT/SGPT 48 U/L (12-78); BILIRUBIN,TOTAL 0.7 MG/DL (0.2-1.0); BLOOD UREA NITROGEN 21 MG/DL (7-18); CALCIUM LEVEL 9.3 MG/DL (8.5-10.1); CARBON DIOXIDE LEVEL 27 MEQ/L (21-32); CHLORIDE LEVEL 98 MEQ/L (98-107); CHOLESTEROL LEVEL 241 MG/DL (<200); CHOLESTEROL RISK RATIO 5.738 (<5); CREATININE FOR GFR 0.76 MG/DL (0.70-1.30); GLOMERULAR FILTRATION RATE > 60.0 (>56); GLUCOSE, FASTING 243 MG/DL (70-100); HDL CHOLESTEROL 42 MG/DL (>40); HEMOGLOBIN A1c 10.8 %; LDL CHOLESTEROL 156 MG/DL (<100); NON-HDL-C 199 MG/DL; POTASSIUM SERUM 4.4 MEQ/L (3.5-5.1); PROSTATIC SPECIFIC AG MONITOR 0.28 NG/ML (< 4.00); SODIUM LEVEL 135 MEQ/L (136-145); TESTOSTERONE 482 NG/DL (241-827); TOTAL PROTEIN 7.6 GM/DL (6.4-8.2); TRIGLYCERIDES LEVEL 217 MG/DL (<150)
== END ==
LOC: M LAB 10:25
PROVIDERS: ATTEND Family Medicine
DX: R94.31 Abnormal electrocardiogram [ECG] [EKG] (principal); E11.9 Type 2 diabetes mellitus without complications; I10 Essential (primary) hypertension

== ENCOUNTER 2020-06-15 20:58 | Emergency (ER) | payer BC ==
[~2020-06-15] VITALS: Ht 182.9 cm; Wt 127.7 kg
[2020-06-15 21:50] LABS: BASO # 0.1 10^3/uL (0.0-0.2); BASO % 0.7 % (0.0-1.0); EOS # 0.2 10^3/uL (0.0-0.5); EOS % 1.8 % (0.0-3.0); HEMATOCRIT 43.6 % (42.0-52.0); HEMOGLOBIN 14.4 g/dl (13.5-17.5); LYMPH # 2.9 10^3/uL (1.5-5.0); LYMPH % 31.9 % (24.0-44.0); MEAN CORPUSCULAR HEMOGLOBIN 29.3 pg (27.0-33.0); MEAN CORPUSCULAR VOLUME 88.6 fl (80.0-96.0); MONO # 0.7 10^3/uL (0.0-0.8); MONO % 8.2 % (0.0-5.0); NEUTROPHILS # 5.1 10^3/uL (1.5-8.5); NEUTROPHILS % 56.8 % (36.0-66.0); PLATELET COUNT, AUTOMATED 308 10^3/uL (150-450); RED BLOOD COUNT 4.92 10^6/uL (4.30-6.10)
[2020-06-15] MEDS ORDERED: NS 1,000 ML IV ONE (22:15)
[2020-06-15] MEDS ORDERED: ISOVUE-370 76% 100ML VIAL As Ordered ONE (22:15)
[2020-06-15] MEDS ORDERED: ONDANSETRON 4MG/2ML VIAL IV ONE (22:15)
[2020-06-15 22:34] LABS: ALBUMIN 3.6 GM/DL (3.2-5.2); ALT/SGPT 46 U/L (12-78); BILIRUBIN,DIRECT < 0.1 MG/DL (0.0-0.2); BILIRUBIN,TOTAL 0.3 MG/DL (0.2-1.0); LIPASE 308 U/L (73-393); TOTAL PROTEIN 7.4 GM/DL (6.4-8.2)
--- NOTE | 2020-06-15 22:49 | REPVR ---
PROCEDURE INFORMATION: Exam: CT Abdomen And Pelvis With Contrast Exam date and time: 06/15/2020 10:25 PM Age: 54 years old Clinical indication: Injury or trauma; Injury history: Blunt trauma; Initial encounter; Luq; Additional info: Blunt trauma L flank 3 wks ago, pain worse last 4 days, n TECHNIQUE: Imaging protocol: Computed tomography of the abdomen and pelvis with intravenous contrast. Radiation optimization: All CT scans at this facility use at least one of these dose optimization techniques: automated exposure control; mA and/or kV adjustment per patient size (includes targeted exams where dose is matched to clinical indication); or iterative reconstruction. Contrast material: ISOVUE 370; Contrast volume: 100 ml; Contrast route: INTRAVENOUS (IV); COMPARISON: CT ABD PELVIS WITH CONTRAST 10/04/2013 10:56 PM FINDINGS: Liver: There is hepatomegaly and hepatic steatosis. Gallbladder and bile ducts: Normal. No calcified stones. No ductal dilation. Pancreas: Normal. No ductal dilation. Spleen: Normal. No splenomegaly. Adrenals: Normal. No mass. Kidneys and ureters: Normal. No hydronephrosis. Stomach and bowel: Unremarkable. No obstruction. No mucosal thickening. Appendix: No evidence of appendicitis. Intraperitoneal space: Unremarkable. No free air. No significant fluid collection. Vasculature: Unremarkable. No abdominal aortic aneurysm. Lymph nodes: Unremarkable. No enlarged lymph nodes. Bladder: Unremarkable as visualized. Reproductive: Unremarkable as visualized. Bones/joints: There are degenerative changes in the spine and pelvis. Soft tissues: Unremarkable. IMPRESSION: Hepatic steatosis and hepatomegaly. Electronically signed by: Madhav Dougherty On 06/15/2020 22:48:54 PM
[2020-06-15] MEDS ORDERED: KETOROLAC 30 MG/ML 1ML VIAL IV ONE (23:30)
[2020-06-15 23:44] LABS: HEMOGLOBIN A1c 11.3 %
[2020-06-16] MEDS ORDERED: HumuLIN R (REGULAR) INSULIN (NovoLIN R) **100U/ML** PER UNIT IV ONE (00:15)
[2020-06-16 01:13] VITALS: BP 142/79
[2020-06-16] MEDS ORDERED: ROBA750T4 PO (01:13)
[2020-06-16] MEDS ORDERED: ONDA4TAB6 PO (01:13)
[2020-06-16] MEDS ORDERED: methocarbamoL 750 MG TAB PO ONE (01:15)
--- NOTE | 2020-06-20 11:03 | ED PDOC ---
Post-Departure Follow-Up dr berkowitz faxed formal report of ct abd/p for fu Amish Gomez MD Jun 20, 2020 11:03
== END 2020-06-16 01:22 | disposition home or self-care (01) ==
LOC: M ED 20:58
DX: R10.12 Left upper quadrant pain (principal); R11.0 Nausea; R16.0 Hepatomegaly, not elsewhere classified; I10 Essential (primary) hypertension; E11.65 Type 2 diabetes mellitus with hyperglycemia; Z79.891 Long term (current) use of opiate analgesic; Z79.84 Long term (current) use of oral hypoglycemic drugs; Z91.030 Bee allergy status
CPT/HCPCS: 74177; 80047; 80076; 81001; 82010; 83036; 83690; 85025; 96361; 96374; 96375; 99284; J1885; J2405; Q9967

== ENCOUNTER → 2020-10-09 | Outpatient (CLI) | payer BC ==
[~2020-10-09] MED LIST changes: +ONDA4TAB6 PO; +ROBA750T4 PO
[2020-10-09 11:21] LABS: HEMATOCRIT 46.6 % (42.0-52.0); HEMOGLOBIN 14.8 g/dl (13.5-17.5); MEAN CORPUSCULAR HEMOGLOBIN 28.8 pg (27.0-33.0); MEAN CORPUSCULAR HGB CONC 31.8 g/dl (32.0-36.5); MEAN CORPUSCULAR VOLUME 90.7 fl (80.0-96.0); PLATELET COUNT, AUTOMATED 327 10^3/uL (150-450); RED BLOOD COUNT 5.14 10^6/uL (4.30-6.10); WHITE BLOOD COUNT 8.4 10^3/uL (4.0-10.0)
[2020-10-09 11:59] LABS: ALBUMIN 3.8 GM/DL (3.2-5.2); ALT/SGPT 57 U/L (12-78); BILIRUBIN,TOTAL 0.6 MG/DL (0.2-1.0); BLOOD UREA NITROGEN 16 MG/DL (7-18); CALCIUM LEVEL 9.8 MG/DL (8.5-10.1); CARBON DIOXIDE LEVEL 29 MEQ/L (21-32); CHLORIDE LEVEL 102 MEQ/L (98-107); CHOLESTEROL LEVEL 183 MG/DL (<200); CREATININE FOR GFR 0.84 MG/DL (0.70-1.30); GLOMERULAR FILTRATION RATE > 60.0 (>56); GLUCOSE, FASTING 238 MG/DL (70-100); HDL CHOLESTEROL 50 MG/DL (>40); LDL CHOLESTEROL 100 MG/DL (<100); NON-HDL-C 133 MG/DL; POTASSIUM SERUM 4.5 MEQ/L (3.5-5.1); SODIUM LEVEL 138 MEQ/L (136-145); TESTOSTERONE 207 NG/DL (241-827); TOTAL PROTEIN 7.6 GM/DL (6.4-8.2); TRIGLYCERIDES LEVEL 167 MG/DL (<150)
[2020-10-09 12:11] LABS: HEMOGLOBIN A1c 11.8 %
== END ==
LOC: M LAB 10:02
PROVIDERS: ATTEND Family Medicine
DX: I10 Essential (primary) hypertension (principal); E11.9 Type 2 diabetes mellitus without complications; E03.9 Hypothyroidism, unspecified

== ENCOUNTER → 2020-10-16 | Outpatient (CLI) | payer BC ==
--- NOTE | 2020-10-17 07:19 | REP ---
INDICATION: LLQ MASS AND PAIN COMPARISON: 06/15/2020 TECHNIQUE: Axial noncontrast images from the lung bases to the pubic symphysis with coronal and sagittal reformations. This CT examination was performed using the following dose reduction techniques: Automated exposure control, adjustment of mA and/or kv according to the patient's size, and use of iterative reconstruction technique. FINDINGS: Lung bases are clear. Visualized heart and pericardium normal. Liver is mildly enlarged with suggestions for mild fatty infiltration., Spleen, pancreas, gallbladder, bilateral adrenal glands and kidneys are normal. The enteric system is unremarkable and without obstruction or acute inflammatory process. Normal terminal ileum and appendix identified in the right lower quadrant. Few scattered colonic/sigmoid diverticula noted without acute diverticulitis. Pelvis demonstrates normal bladder and age-appropriate prostate/seminal vesicles. No ascites. No free air. No adenopathy. No focal inflammatory stranding. Abdominal aorta demonstrates atherosclerotic changes without aneurysm. Musculoskeletal structures are intact and without acute osseous abnormality. IMPRESSION: Suggestions for hepatomegaly and hepatosteatosis. Scattered colonic diverticula without acute diverticulitis. No further acute abdominopelvic pathology appreciated. <Electronically signed by Liam Nelson > 10/17/20 [id number]
== END ==
LOC: M RAD 15:50
PROVIDERS: ATTEND Family Medicine
DX: R10.32 Left lower quadrant pain (principal)

== ENCOUNTER → 2022-01-29 | Outpatient (CLI) | payer OTHER ==
[~2022-01-29] MED LIST changes: +FARX1TAB3 PO; +FLUO40CA PO; -HYDR-3716; +HYDR-3716 PO; +IBUP80TA PO; +SIMV20TA22 PO; +VITA100093 PO
[2022-01-29 11:22] LABS: HEMATOCRIT 45.4 % (42.0-52.0); HEMOGLOBIN 14.9 g/dl (13.5-17.5); MEAN CORPUSCULAR HEMOGLOBIN 29.3 pg (27.0-33.0); MEAN CORPUSCULAR HGB CONC 32.8 g/dl (32.0-36.5); MEAN CORPUSCULAR VOLUME 89.4 fl (80.0-96.0); PLATELET COUNT, AUTOMATED 322 10^3/uL (150-450); RED BLOOD COUNT 5.08 10^6/uL (4.30-6.10); WHITE BLOOD COUNT 7.6 10^3/uL (4.0-10.0)
[2022-01-29 12:17] LABS: HEMOGLOBIN A1c 11.9 %
[2022-01-29 12:20] LABS: ALBUMIN 3.6 GM/DL (3.2-5.2); ALT/SGPT 51 U/L (12-78); BILIRUBIN,TOTAL 0.4 MG/DL (0.2-1.0); BLOOD UREA NITROGEN 16 MG/DL (7-18); CALCIUM LEVEL 9.5 MG/DL (8.5-10.1); CARBON DIOXIDE LEVEL 28 MEQ/L (21-32); CHLORIDE LEVEL 101 MEQ/L (98-107); CHOLESTEROL LEVEL 182 MG/DL (<200); CHOLESTEROL RISK RATIO 3.956 (<5); CREATININE FOR GFR 0.79 MG/DL (0.70-1.30); GLOMERULAR FILTRATION RATE > 60.0 (>56); GLUCOSE, FASTING 312 MG/DL (70-100); HDL CHOLESTEROL 46 MG/DL (>40); LDL CHOLESTEROL 99 MG/DL (<100); NON-HDL-C 136 MG/DL; POTASSIUM SERUM 4.9 MEQ/L (3.5-5.1); PROSTATIC SPECIFIC AG MONITOR 0.21 NG/ML (< 4.00); SODIUM LEVEL 137 MEQ/L (136-145); TOTAL PROTEIN 7.5 GM/DL (6.4-8.2); TRIGLYCERIDES LEVEL 185 MG/DL (<150)
[2022-01-29 14:10] LABS: TOTAL 25(OH) VITAMIN D 14.6 NG/ML (30.0-100.0)
[2022-01-29 14:11] LABS: TESTOSTERONE 177 NG/DL (241-827)
== END ==
LOC: M LAB 10:08
PROVIDERS: ATTEND Family Medicine
DX: I10 Essential (primary) hypertension (principal); R53.83 Other fatigue; E03.9 Hypothyroidism, unspecified

== ENCOUNTER → 2022-02-08 | Outpatient (CLI) | payer BC | LOC: M LABSMTC 09:17 | PROVIDERS: ATTEND Anesthesiology | DX: Z01.812 Encounter for preprocedural laboratory examination (principal); Z20.822 Contact with and (suspected) exposure to COVID-19 ==

== ENCOUNTER 2022-02-13 08:05 | Day surgery (SDC) | payer OTHER ==
[~2022-02-13] VITALS: Ht 180.3 cm; Wt 123.3 kg
[~2022-02-13 08:05] MED LIST changes: +NS 1,000 ML IV ONE
[2022-02-13] MEDS ORDERED: LIDOCAINE 2% 100MG/5ML SDV (FOR ANES.) As Ordered ONE (08:42)
[2022-02-13] MEDS ORDERED: propofoL 200 MG/20 ML VIAL As Ordered ONE (08:42)
[2022-02-13] MEDS ORDERED: fentaNYL 100 MCG/2 ML INJECTION As Ordered ONE (09:15)
[2022-02-13 10:05] VITALS: BP 141/85
== END 2022-02-13 10:15 | disposition home or self-care (01) ==
LOC: M OPP 08:05
PROVIDERS: ATTEND Internal Medicine Gastroenterology
DX: Z12.11 Encounter for screening for malignant neoplasm of colon (principal); Z80.0 Family history of malignant neoplasm of digestive organs; K63.5 Polyp of colon; K57.30 Diverticulosis of large intestine without perforation or abscess without bleeding; K64.0 First degree hemorrhoids; K22.89 Other specified disease of esophagus; K22.70 Barrett's esophagus without dysplasia; K44.9 Diaphragmatic hernia without obstruction or gangrene; R12 Heartburn; E11.9 Type 2 diabetes mellitus without complications; Z79.84 Long term (current) use of oral hypoglycemic drugs; Z79.891 Long term (current) use of opiate analgesic; Z79.899 Other long term (current) drug therapy; Z91.030 Bee allergy status; Z87.891 Personal history of nicotine dependence
CPT/HCPCS: 43239; 45380; 45385; 88305; J3010

== ENCOUNTER → 2023-01-31 | Outpatient (CLI) | payer OTHER ==
[~2023-01-31] MED LIST changes: -NS 1,000 ML IV ONE
[2023-01-31 12:42] LABS: HEMATOCRIT 46.2 % (42.0-52.0); HEMOGLOBIN 15.1 g/dl (13.5-17.5); MEAN CORPUSCULAR HEMOGLOBIN 29.4 pg (27.0-33.0); MEAN CORPUSCULAR HGB CONC 32.7 g/dl (32.0-36.5); MEAN CORPUSCULAR VOLUME 90.1 fl (80.0-96.0); PLATELET COUNT, AUTOMATED 304 10^3/uL (150-450); RED BLOOD COUNT 5.13 10^6/uL (4.30-6.10); WHITE BLOOD COUNT 9.5 10^3/uL (4.0-10.0)
[2023-01-31 12:55] LABS: HEMOGLOBIN A1c 12.3 % (4.0-6.0)
[2023-01-31 13:11] LABS: ALBUMIN 3.5 G/DL (3.2-5.2); ALKALINE PHOSPHATASE 72 U/L (46-116); ALT/SGPT 37 U/L (7.0-40); AST/SGOT 20 U/L (<34); BILIRUBIN,TOTAL 0.4 MG/DL (0.3-1.2); BLOOD UREA NITROGEN 20 MG/DL (9-23); CALCIUM LEVEL 9.3 MG/DL (8.5-10.1); CARBON DIOXIDE LEVEL 26 MMOL/L (20-31); CHLORIDE LEVEL 100 MMOL/L (98-107); CHOLESTEROL LEVEL 198 MG/DL (<200); CHOLESTEROL RISK RATIO 3.75 (<5); GLOMERULAR FILTRATION RATE > 60.0 (>56); GLUCOSE, FASTING 230 MG/DL (60-100); HDL CHOLESTEROL 52.7 MG/DL (>40); LDL CHOLESTEROL 104.5 MG/DL (<100); NON-HDL-C 145 MG/DL; POTASSIUM SERUM 4.6 MMOL/L (3.5-5.1); PROSTATIC SPECIFIC AG MONITOR 0.12 NG/ML (< 4.00); SODIUM LEVEL 136 MMOL/L (136-145); TESTOSTERONE 181 NG/DL (241-827); THYROID STIMULATING HORMONE 1.738 uIU/ML (0.55-4.78); TOTAL PROTEIN 7.1 G/DL (5.7-8.2); TRIGLYCERIDES LEVEL 204 MG/DL (<150)
== END ==
LOC: M LAB 12:16
PROVIDERS: ATTEND Family Medicine
DX: I10 Essential (primary) hypertension (principal); E11.9 Type 2 diabetes mellitus without complications; R53.83 Other fatigue; E03.9 Hypothyroidism, unspecified

== ENCOUNTER → 2023-03-06 | Outpatient (CLI) | payer OTHER | LOC: M PLARAD 09:24 | PROVIDERS: ATTEND Orthopaedic Surgery | DX: M25.511 Pain in right shoulder (principal); M19.011 Primary osteoarthritis, right shoulder; M77.8 Other enthesopathies, not elsewhere classified ==

== ENCOUNTER → 2023-08-12 | Outpatient (CLI) | payer OTHER ==
[2023-08-12 18:05] LABS: BASO # 0.1 10^3/uL (0.0-0.2); BASO % 0.8 % (0.0-1.0); EOS # 0.2 10^3/uL (0.0-0.5); EOS % 1.7 % (0.0-3.0); HEMATOCRIT 43.5 % (42.0-52.0); HEMOGLOBIN 14.5 g/dl (13.5-17.5); LYMPH # 2.7 10^3/uL (1.5-5.0); LYMPH % 22.6 % (24.0-44.0); MEAN CORPUSCULAR HEMOGLOBIN 29.1 pg (27.0-33.0); MEAN CORPUSCULAR HGB CONC 33.3 g/dl (32.0-36.5); MEAN CORPUSCULAR VOLUME 87.3 fl (80.0-96.0); MONO # 0.7 10^3/uL (0.0-0.8); MONO % 6.2 % (2.0-8.0); NEUTROPHILS # 8.2 10^3/uL (1.5-8.5); NEUTROPHILS % 68.2 % (36.0-66.0); PLATELET COUNT, AUTOMATED 305 10^3/uL (150-450); RED BLOOD COUNT 4.98 10^6/uL (4.30-6.10)
[2023-08-12 18:31] LABS: ERYTHROCYTE SEDIMENTATION RATE 89 mm/hr (0-20)
[2023-08-12 20:54] LABS: ALBUMIN 3.6 G/DL (3.2-5.2); ALKALINE PHOSPHATASE 88 U/L (46-116); ALT/SGPT 40 U/L (7.0-40); AST/SGOT 19 U/L (<34); BILIRUBIN,TOTAL 0.4 MG/DL (0.3-1.2); BLOOD UREA NITROGEN 19 MG/DL (9-23); CARBON DIOXIDE LEVEL 24 MMOL/L (20-31); CHLORIDE LEVEL 99 MMOL/L (98-107); CREATININE FOR GFR 0.59 MG/DL (0.70-1.30); GLOMERULAR FILTRATION RATE > 60.0 (>56); POTASSIUM SERUM 4.2 MMOL/L (3.5-5.1); SODIUM LEVEL 133 MMOL/L (136-145); TOTAL PROTEIN 7.2 G/DL (5.7-8.2)
[2023-08-12 21:41] LABS: GLUCOSE, FASTING 408 MG/DL (60-100)
[2023-08-14 13:08] LABS: IgG P18 AB Absent (.); IgG P23 AB Absent (.); IgG P28 AB Absent (.); IgG P30 AB Absent (.); IgG P39 AB Absent (.); IgG P41 AB Absent (.); IgG P45 AB Absent (.); IgG P66 AB Absent (.); IgG P93 AB Absent (.); IgM P23 AB Absent (.); IgM P39 AB Absent (.); IgM P41 AB Absent (.); LYME IgG WB INTERPRETATION Negative (.); LYME IgM WB INTERPRETATION Negative (.)
[2023-08-16 18:51] LABS: URIC ACID 6.9 MG/DL (3.7-9.2)
== END ==
LOC: M LAB 17:18
PROVIDERS: ATTEND Physician Assistant
DX: M25.571 Pain in right ankle and joints of right foot (principal)

== ENCOUNTER → 2023-09-08 | Outpatient (CLI) | payer OTHER ==
[2023-09-08 16:27] LABS: BASO # 0.1 10^3/uL (0.0-0.2); BASO % 0.9 % (0.0-1.0); EOS # 0.2 10^3/uL (0.0-0.5); EOS % 1.4 % (0.0-3.0); HEMATOCRIT 43.7 % (42.0-52.0); HEMOGLOBIN 14.1 g/dl (13.5-17.5); LYMPH # 2.6 10^3/uL (1.5-5.0); LYMPH % 24.9 % (24.0-44.0); MEAN CORPUSCULAR HEMOGLOBIN 29.1 pg (27.0-33.0); MEAN CORPUSCULAR HGB CONC 32.3 g/dl (32.0-36.5); MEAN CORPUSCULAR VOLUME 90.1 fl (80.0-96.0); MONO # 0.8 10^3/uL (0.0-0.8); MONO % 7.4 % (2.0-8.0); NEUTROPHILS # 6.7 10^3/uL (1.5-8.5); NEUTROPHILS % 64.3 % (36.0-66.0); PLATELET COUNT, AUTOMATED 336 10^3/uL (150-450); RED BLOOD COUNT 4.85 10^6/uL (4.30-6.10); WHITE BLOOD COUNT 10.4 10^3/uL (4.0-10.0)
== END ==
LOC: M PLALAB 13:26
PROVIDERS: ATTEND Orthopaedic Surgery
DX: S86.021A Laceration of right Achilles tendon, initial encounter (principal); X58.XXXA Exposure to other specified factors, initial encounter; Y92.9 Unspecified place or not applicable

== ENCOUNTER → 2023-10-20 | Outpatient (CLI) | payer OTHER | LOC: M RAD 15:25 | PROVIDERS: ATTEND Orthopaedic Surgery | DX: M79.669 Pain in unspecified lower leg (principal); M79.89 Other specified soft tissue disorders ==